=== PATIENT | female | born 1975 | race Two or more races ===

== ENCOUNTER 2025-01-07 14:31 | Inpatient (IN) | payer MEDICAID, SELFPAY ==
[2025-01-07] VITALS (15 sets, daily range): BP systolic 112–165; BP diastolic 62–95; PULSE 70–110; RESP 18–29; TEMP 36.6–37; O2SAT 97–100; BMI 23.3
--- NOTE | 2025-01-07 15:13 | XR_ITS ---
Examination: CT abdomen with intravenous contrast CT pelvis with intravenous contrast 2-D coronal reconstructions 2-D sagittal reconstructions Date and time of exam:January 07, 2025 at 1726 hours INDICATIONS: Generalized abdominal pain and swelling beginning 2 weeks ago. CTDI: vol (mGy) 9.66 DLP: (mGycm) 470 Technique: Multiple axial sections of the abdomen and pelvis have been obtained. 64 slice high-resolution scanner used. 3 mm axial sections have been obtained, post intravenous injection of 60 cc Isovue 370 2-D sagittal, coronal reconstructions obtained. Low dose protocols were performed. One or more of the following dose reduction techniques were used; automated exposure control, adjustment of the mA and/or KV according to patient size, use of iterative reconstruction technique. Findings: No focal liver or splenic lesions Patient motion degrades scan image quality No definite gallstones No pancreatic mass Small bilateral renal cysts No hydronephrosis Aorta normal size Hypodense mass in the subcutaneous tissue anterior right lower abdomen, mediolateral dimension 9.7 cm AP dimension 4.5 cm cephalad caudad dimension 8.3 cm Urinary bladder intact No pelvic mass Moderate degenerative disc disease L5-S1 IMPRESSION: Hypodense soft tissue mass in the subcutaneous tissue anterior right lower abdomen, 9.7 x 4.5 x 8.3 cm, differential would include abscess, less likely hematoma
--- NOTE | 2025-01-07 15:13 | PD.EDRME ---
Rapid Medical Screening Exam RME Arrival date/time: 01/07/25 14:31 49-year-old female presents emerged part today for complaint of abdominal pain abdominal swelling Chief Complaint: General Adult/Misc Complain Time Seen by Provider: 01/07/25 15:02 Vital signs: Vital Signs Temperature 97.9 F 01/07/25 15:04 Pulse Rate 110 H 01/07/25 15:04 Respiratory Rate 18 01/07/25 15:04 Blood Pressure 165/95 H 01/07/25 15:04 Pulse Oximetry (%) 97 01/07/25 15:04 Oxygen Delivery Method Room Air 01/07/25 15:04
[2025-01-07 15:32] LABS: Lactate (Lactic Acid) 1.6 mMol/L (0.4-2.0)
[2025-01-07 15:33] LABS: Basophils # (Auto) 0.1 Thou/mm3 (0.0-0.2); Basophils % (Auto) 0 % (0-2.5); Eosinophils % (Auto) 0 % (0-10); Hematocrit 43.1 % (36.0-46.0); Hemoglobin 15.5 g/dL (12.0-16.0); Immature Granulocytes % (Auto) 1 % (0-0); Immature Granulocytes Auto 0.12 Thou/mm3 (0.00-0.00); Lymphocytes # (Auto) 1.1 Thou/mm3 (1.0-4.8); Lymphocytes % (Auto) 6 % (10-50); Mean Corpuscular Hemoglobin 29.6 pg (25.0-35.0); Mean Corpuscular Volume 82 fL (80-100); Monocytes # (Auto) 0.9 Thou/mm3 (0.0-0.8); Monocytes % (Auto) 5 % (0-12); Neutrophils # (Auto) 15.4 Thou/mm3 (1.8-7.7); Neutrophils % (Auto) 87 % (37-80); Nucleated Red Blood Cell % 0 /100 WBC (0); Platelet Count 415 Thou/mm3 (140-440); Red Blood Count 5.23 Miln/mm3 (4.00-5.20); White Blood Count 17.6 Thou/mm3 (3.6-11.0)
[2025-01-07 16:03] LABS: Alanine Aminotransferase < 7 U/L (10-49); Albumin, Serum 4.3 gm/dL (3.5-5.0); Albumin/Globulin Ratio 1.3 (1.2-2.2); Alkaline Phosphatase 165 U/L (46-116); Anion Gap 20 (7-16); Aspartate Amino Transferase < 8 U/L (0-34); BUN/Creatinine Ratio 9 Ratio (12-20); Bilirubin,Total 0.4 mg/dL (0.3-1.2); Blood Urea Nitrogen 8 mg/dL (9-23); C-Reactive Protein 4.3 mg/dL (0.0-0.9); Calcium 9.2 mg/dL (8.3-10.6); Calcium (Corrected) 9.2 mg/dL (8.5-10.1); Chloride 99 mMol/L (98-107); Creatinine (Component) 0.9 mg/dL (0.6-1.3); Estimated Creatinine Clearance 46.1 mL/min (>60); Globulin 3.3 gm/dL (2.3-3.5); Glucose 377 mg/dL (74-106); Osmolality,Calculated 272 (275-295); Potassium 3.6 mMol/L (3.4-5.1); Procalcitonin 0.08 ng/ml (0.0-0.49); Sodium 129 mMol/L (136-145); Total Protein 7.6 gm/dL (5.7-8.2); eGFR > 60 See Note
[2025-01-07 16:04] LABS: Carbon Dioxide < 10.0 mMol/L (20.0-31.0)
--- NOTE | 2025-01-07 16:08 | PC.NURSE ---
CALL FROM [facility] IN LAB. PT'S CO2 IS LESS THAN 10. PROVIDER YINA ARCE.
[2025-01-07 16:59] LABS: Sed Rate (ESR) 77 mm/hr (0-20)
--- NOTE | 2025-01-07 17:58 | PD.EDABDPN ---
ED Abdominal Pain RME/HPI General Chief Complaint: General Adult/Misc Complain Stated complaint: HAS A BUMP ON HER STOMACH X 2 WKS; VERY PAINFUL Time seen by provider: 01/07/25 15:02 Arrival date/time: 01/07/25 14:31 RME / HPI RME / HPI narrative: 01/07/25 14:31 49-year-old female presents emerged part today for complaint of abdominal pain abdominal swelling ----- This section includes all my notes and documentations, including HPI, PE, and ED course. Barry Anne MD HPI: 49yo female with a history of DM presents to the ED for complaints of abdominal pain, nausea, and vomiting for the last two weeks. Didn't take her insulin for about a week. Patient's symptoms have been persistent and progressively worsening. No fever, chills, UTI symptoms. No other complaints reported. ROS: All negative except as documented in HPI. Physical Exam: General: Alert and oriented. Appearance of severe malaise noted. Eyes: Conjunctivae and lids clear. ENT: No nasal congestion. Neck: Supple. Heart: RRR. Lungs: No respiratory distress. Good air movement. No rhonchi, wheezing, rales. Abdomen: Soft. Normal bowel sounds. No distension. No rebound or guarding. Inferior to the umbilicus, there is apple sized lump. Back: No CVA tenderness. Skin: Warm and dry. Neuro: Alert and oriented X 3. I reviewed all diagnostic test results. My review of the CT abdomen pelvis report is lower abdominal 9.7 x 4.5 x 8.3 cm mass. Blood tests remarkable for WBC 17.6, ESR 77, Carbon Dioxide <10, Glucose 377, Anion Gap 20, CRP 4.3, A1c >14, Beta Hydroxybutyrate 5.9. ABG showed pH 7.17, pCO2 14, pHCO3 5. UA remarkable for 4+ ketones. At this point, diagnoses include DKA and abdominal abscess. Treatment here included Morphine, Zofran, Toradol, Insulin drip, NS, 2L LR, and Zosyn. No significant improvement noted. I discussed the case with our surgeon and ICU service. About the presentation and exam and diagnostics and treatments here. And need of further care in the hospital. Will accept the patient. Barry Anne MD Related Data Allergies Allergy/AdvReac Type Severity Reaction Status Date / Time No Known Allergies Allergy Verified 01/07/25 14:37 Review of Systems Review of Systems Systems Reviewed: All systems reviewed, normal except as documented Past Medical History Past Medical History CARDIAC: Negative Cardiac Disorders or Congestive Heart Failure RESPIRATORY: Negative Chronic Obstructive Pulmonary Disease (COPD) or Asthma GENITOURINARY: Negative Renal Disease ENDOCRINE: Positive Diabetes Mellitus Type 2; Negative Diabetes Mellitus Type 1 HEMATOLOGIC: Positive Anemia; Negative Sickle Cell Disease OTHER HISTORY: Positive Blood Transfusions; Negative Organ Transplant Surgical History SURGICAL: Positive Abdominal Surgery, Tubal Ligation (2002) and Section; Negative Organ Transplant Social History SMOKING STATUS: Never smoker ED Exam Narrative Physical exam: As noted in HPI. Course Quality Measures none Orders Category Date Time Status COVID-19 Screening Questionnaire NOW Care 01/07/25 19:[address] Screening NOW Care 01/07/25 15:13 Active Decision to Admit X1 Care 01/07/25 19:31 Active Saline [Insert IV] NOW Care 01/07/25 18:00 Active Straight [In and Out Catheter] X1 Care 01/07/25 18:00 Active Consult to General Surgery Stat Cons 01/07/25 18:[address] abdomen pelvis w con Stat Exams 01/07/25 15:13 Completed US abdomen limited Stat Exams 01/07/25 18:06 Taken ABG [Arterial Blood Gas] Stat Lab 01/07/25 18:28 Completed Amylase Stat Lab 01/07/25 18:37 Completed Beta Hydroxybutyrate Stat Lab 01/07/25 18:37 Completed Bilirubin,Direct Stat Lab 01/07/25 18:37 Completed Blood Culture (Lab) Stat Lab 01/07/25 15:20 Received CBC Stat Lab 01/07/25 15:23 Completed CRP [C-Reactive Protein] Stat Lab 01/07/25 15:23 Completed Comprehensive Metabolic Panel Stat Lab 01/07/25 15:23 Completed ESR [Sed Rate (ESR)] Stat Lab 01/07/25 15:23 Completed Free T4 (Free Thyroxine) Stat Lab 01/07/25 18:37 Completed HCG Qualitative,Urine Stat Lab 01/07/25 18:25 Completed Hemoglobin A1C [Glycohemoglobin w (eAG)] Stat Lab 01/07/25 18:37 Completed Lactate (Lactic Acid) Stat Lab 01/07/25 15:23 Completed Lipase Stat Lab 01/07/25 18:37 Completed Magnesium Stat Lab 01/07/25 18:37 Completed Procalcitonin Stat Lab 01/07/25 15:23 Completed TSH [Thyroid Stimulating Hormone] Stat Lab 01/07/25 18:37 Completed Urinalysis Stat Lab 01/07/25 18:25 Completed Urine Culture Stat Lab 01/07/25 18:25 Received 3.375 gm x1 Med 01/07/25 19:37 Ordered Piper/Tazo 3.375 gm Premix [Zosyn] 3.375 gm in 50 ml IV X1 Insulin Reg 100 Units/100 ml [Myxredlin] Med 01/07/25 18:38 Active 100 unit in 100 ml IV 0.1 unit/kg/hr Insulin Regular Med 01/07/25 18:05 Discontinued 5 unit IV X1 ONE Ketorolac Inj [Toradol Inj] Med 01/07/25 18:00 Discontinued 30 mg IVP X1 ONE Morphine Inj Med 01/07/25 18:00 Discontinued 6 mg IVP X1 ONE Ondansetron Inj [Zofran Inj] Med 01/07/25 18:00 Discontinued 4 mg IVP X1 ONE Ringers Lactated 1000 ml [Lactated Ringers] 1,000 ml Med 01/07/25 18:38 Discontinued IV 1,000 mls/hr Ringers Lactated 1000 ml [Lactated Ringers] 1,000 ml Med 01/07/25 18:38 Discontinued IV 1,000 mls/hr Sodium Chloride 0.9% 1000 ml [Ns] 1,000 ml Med 01/07/25 18:00 Discontinued IV 999 mls/hr Vital Signs Vital signs: Vital Signs Temperature 97.9 F 01/07/25 15:04 Pulse Rate 110 H 01/07/25 15:04 Respiratory Rate 18 01/07/25 15:04 Blood Pressure 165/95 H 01/07/25 15:04 Pulse Oximetry (%) 97 01/07/25 15:04 Oxygen Delivery Method Room Air 01/07/25 15:04 Abdominal Pain MDM MDM Narrative MDM Narrative:: 49yo female with a history of DM presents to the ED for complaints of abdominal pain, nausea, and vomiting for the last two weeks. Didn't take her insulin for about a week. Patient's symptoms have been persistent and progressively worsening. No fever, chills, UTI symptoms. No other complaints reported. Patient data External records reviewed:: [facility] previous records (Per chart review, patient has no previous ED visits or admissions to this facility.) Clinical information provided by:: patient Social determinants that could affect healthcare access:: none Patient has the following chronic illnesses:: DM How is presenting disease/condition affected by chronic disease/condition?: uneffected by Evaluation data The following diagnostics were reviewed and interpreted by me:: lab results and radiology exam(s) Lab and/or radiology exams considered but not ordered:: none Interpretation Summary: I reviewed all diagnostic test results. My review of the CT abdomen pelvis report is lower abdominal 9.7 x 4.5 x 8.3 cm mass. Blood tests remarkable for WBC 17.6, ESR 77, Carbon Dioxide <10, Glucose 377, Anion Gap 20, CRP 4.3, A1c >14, Beta Hydroxybutyrate 5.9. ABG showed pH 7.17, pCO2 14, pHCO3 5. UA remarkable for 4+ ketones. Medications / Prescriptions Medications or Prescriptions considered but not ordered:: none Medication administrations:: Medication Administration History Insulin Human Regular (Myxredlin) 100 unit in 100 mls @ 4.4 mls/hr IV .[id number] PRN; Protocol PRN Reason: PER PROTOCOL Stop: 02/06/25 18:37 Last Admin: 01/07/25 19:20 Dose: 0.1 unit/kg/hr, 4.4 mls/hr Documented By: AIYANA Co-signed By: LAYLA Discontinued Medications Sodium Chloride (Ns) 1,000 mls @ 999 mls/hr IV .Q1H1M ONE Stop: 01/07/25 19:00 Last Admin: 01/07/25 19:14 Dose: 999 mls/hr Documented By: AIYANA Lactated Ringer's (Lactated Ringers) 1,000 mls @ 1,000 mls/hr IV .Q1H ONE Stop: 01/07/25 19:37 Lactated Ringer's (Lactated Ringers) 1,000 mls @ 1,000 mls/hr IV .Q1H ONE Stop: 01/07/25 19:37 Insulin Human Regular (Insulin Hum Regular 1 Unit/0.01 Ml (Per Unit)) 5 unit IV X1 ONE Stop: 01/07/25 18:06 Last Admin: 01/07/25 19:31 Dose: Not Given Documented By: LAYLA Non-Admin Reason: Discontinued Ketorolac Tromethamine (Ketorolac Inj 30 Mg/Ml Vial) 30 mg IVP X1 ONE Stop: 01/07/25 18:01 Last Admin: 01/07/25 19:10 Dose: 30 mg Documented By: AIYANA Morphine Sulfate (Morphine Sulf Inj 10 Mg/Ml Vial) 6 mg IVP X1 ONE Stop: 01/07/25 18:01 Ondansetron HCl (Ondansetron Inj 2 Mg/Ml Inj 2 Ml) 4 mg IVP X1 ONE; Protocol Stop: 01/07/25 18:01 Last Admin: 01/07/25 19:10 Dose: 4 mg Documented By: AIYANA Morphine, Zofran, Toradol, Insulin drip, NS, 2L LR, and Zosyn. Consultations Consultation(s) initiated? (list below): Yes Consultation #1 (Physician, Specialty, Details): I discussed the case with our general surgeon and ICU service. About the presentation and exam and diagnostics and treatments here. And need of further care in the hospital. Will accept the patient. Diagnosis Differential diagnosis abdominal pain: acute appendicitis, calculus of kidney, diverticulitis, endometriosis, gastroenteritis, pancreatitis, small bowel obstruction and other (DKA, dehydration, electrolyte abnormalities.) Most likely diagnosis given after review of the tests above:: DKA and abdominal abscess per Admission Indicated Admission indicated?: indicated Explain why admission is indicated or not indicated:: DKA and abdominal masses. Admission Request Was there a request for admission?: Yes Admission Attestation Admission request attestation: Discussed case with ICU service service regarding admission. Discussed patients ED course, exam findings, labs, and radiology results. Agrees to accept the patient for admission. Disposition Plan Disposition Plan: Admit Critical Care Time Critical Care Time Critical Care Time: Yes Total Critical Care Time (min.): 40 Attestation: Due to a high probability of clinically significant, life threatening deterioration, the patient required my highest level of preparedness to intervene emergently and I personally spent this critical care time directly and personally managing the patient. This critical care time included obtaining a history; examining the patient; ordering and review of studies; arranging urgent treatment with development of a management plan; evaluation of patient's response to treatment; frequent reassessment; and discussions with family and other providers. It was exclusive of separately billable procedures and treating other patients and teaching time. Barry Anne MD Discharge Plan Plan Patient Disposition: Admit Acute Care w/in Hospital Prescriptions/Referrals Referrals: No Primary/Family,Physician [Primary Care Provider] - In 1 week Problem List Clinical Impression: DKA (diabetic ketoacidosis), Abdominal abscess Patient/Caregiver Discharge Instructions Print Language: Swiss Stand Alone Forms: Kady Award Info., Patient Portal Info Letter
--- NOTE | 2025-01-07 18:06 | XR_ITS ---
Examination: Abdomen sonogram, Limited Date and time of exam: January 07, 2025 1916 hours INDICATIONS: Right lower abdomen palpable lump and pain 2 weeks Technique: Real-time oropeza scale transabdominal sonographic images of the upper abdomen obtained. Findings: Avascular lesion in the anterior right lower abdominal wall ill-defined borders 12.6 x 3.8 x 10.6 cm, consider abscess, hematoma, clinical correlation advised IMPRESSION: 12.6 x 3.8 x 10.0 cm noncompressible mass in the right lower abdomen abdominal wall, differential would include abscess, hematoma, clinical correlation is advised
[2025-01-07 18:33] LABS: Collection Type, Urine Clean Catch
[2025-01-07 18:34] LABS: Base Excess -21 (-3-3); HCO3 5 mEq/L (20-26); Inspired Oxygen, FIO2 21 %; O2 Saturation 97 % (91-98); PCO2 14 mmHg (32.0-48.0); PO2 122 mmHg (83-108)
[2025-01-07 18:36] LABS: pH, Arterial 7.17 (7.35-7.45)
[2025-01-07 18:37] LABS: Allen Test Performed/OK; Puncture Site Right Radial
[2025-01-07 18:39] LABS: HCG Qualitative,Urine Negative
[2025-01-07 18:41] LABS: Bilirubin,Urine Negative (Negative); Blood,Urine Trace (Negative); Clarity,Urine Clear (Clear/Hazy); Color,Urine Colorless (Lt Yel-Yel); Glucose, Urine 4+ (Negative); Hyaline Casts,Urine < 1 /hpf (0-1); Ketones,Urine 4+ (Negative); Leukocyte Esterase,Urine Negative (Negative); Nitrite,Urine Negative (Negative); PH,Urine 5.5 (5.0-7.0); Protein,Urine 1+ (Neg - Trace); RBC,Urine 2 /hpf (0-3); Specific Gravity,Urine 1.039 (1.001-1.035); Squamous Epithelial Cell,Urine < 1 /hpf (0-5); Urobilinogen,Urine Negative mg/dL (0.0-1.0); WBC,Urine 3 /hpf (0-5)
[2025-01-07 19:00] LABS: Beta Hydroxybutyrate 5.9 mmol/L (<0.6)
[2025-01-07] MEDS: ONDANSETRON INJ 2 MG/ML INJ 2 ML 4 MG IVP (19:10)
[2025-01-07] MEDS: KETOROLAC INJ 30 MG/ML VIAL IVP (19:10)
[2025-01-07 19:13] LABS: Glucose Estimated Average 355 mg/dL (80-131); Hemoglobin A1C > 14.0 % Hgb (4.8-6.0)
[2025-01-07] MEDS: SODIUM CHLORIDE 0.9% 1000 ML 1,000 ML 999 ML IV (19:14)
[2025-01-07] MEDS: INSULIN REG 100 UNITS/100 ML 100 UNIT/100 ML BAG IV (19:20)
[2025-01-07 19:31] LABS: Amylase 56 U/L (30-118); Bilirubin,Direct < 0.1 mg/dL (0.0-0.3); Free T4 (Free Thyroxine) 0.94 ng/dL (0.89-1.76); Lipase 57 U/L (12-53); Magnesium 2.4 mg/dL (1.6-2.6); Thyroid Stimulating Hormone 1.47 uIU/mL (0.55-4.78)
[2025-01-07] MEDS: RINGERS LACTATED 1000 ML 1,000 ML IV ×2 (20:02)
--- NOTE | 2025-01-07 20:09 | EKG_ITS ---
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
--- NOTE | 2025-01-07 20:10 | ESHP_ITS ---
Documentation for date of: 01/07/25 HPI - Hospitalist History of Present Illness History of present illness: A 49-year-old female with Hx of insulin-dependent diabetes melitis complains of intermittent nausea, nonbloody nonbilious emesis and abdominal pain for the past 2 weeks. She reports having lower abdominal pain with swelling and tenderness that started 2 weeks ago and has been progressing in severity. She recently saw her PCP who did certain imaging with reportedly fat tissue and the swelling of the abdominal wall. She describes running out of her medications for diabetes and has not been taking her antidiabetic medications for the past 4-5 days. She denies chest pain, shortness of breath, dizziness, syncope, dysuria, bowel bladder dysfunction otherwise. No history of smoking, occasional EtOH use and denies substance use. Review of Systems Review of Systems Narrative Review of Systems: 12 point review of systems unremarkable except as described above Meds Home Medications and Allergies Allergies Allergy/AdvReac Type Severity Reaction Status Date / Time No Known Allergies Allergy Verified 01/07/25 14:37 Exam Vital Signs Temp Pulse Resp BP Pulse Ox O2 Del Method 98.6 F 92 21 H 147/88 H 98 Room Air 01/07/25 16:38 01/07/25 19:30 01/07/25 19:30 01/07/25 19:30 01/07/25 19:30 01/07/25 19:30 Narrative Physical Exam: General: AO x 3, No distress. HEENT: PERRL, No JVD, Neck supple. Resp: CTA bilaterally, no wheezing or crackles/rhonchii Card: Regular Rhythm, Normal rate. No audible murmur Gatro: Soft nontender, nondistended, protuberant mass in central lower quadrant with tenderness however no fluctuation. Extr: No LE edema, ROM intact, Neuro: No focal neruological deficits. Results - Hospitalist Labs Diagrams: 01/07/25 15:23 01/07/25 15:23 Labs: Short CBC 01/07/25 Range/Units 15:23 WBC 17.6 H (3.6-11.0) Thou/mm3 Hgb 15.5 (12.0-16.0) g/dL Hct 43.1 (36.0-46.0) % Plt Count 415 (140-440) Thou/mm3 BMP 06/23/25 15:23 Sodium 129 L Potassium 3.6 Chloride 99 Carbon Dioxide < 10.0 L* BUN 8 L Creatinine 0.9 Glucose 377 H Calcium 9.2 Liver Function 01/07/25 01/07/25 Range/Units 15:23 18:37 Total Bilirubin 0.4 (0.3-1.2) mg/dL Direct Bilirubin < 0.1 (0.0-0.3) mg/dL AST < 8 (0-34) U/L ALT < 7 L (10-49) U/L Alkaline Phosphatase 165 H (46-116) U/L Albumin 4.3 (3.5-5.0) gm/dL Urine 01/07/25 Range/Units 18:25 Urine Color Colorless A (Lt Yel-Yel) Urine Clarity Clear (Clear/Hazy) Urine pH 5.5 (5.0-7.0) Ur Specific [place] 1.039 H (1.001-1.035) Urine Protein 1+ A (Neg - Trace) Urine Glucose (UA) 4+ A (Negative) ABG Interpretation ABG results: 01/07/25 18:28 ABG pH 7.17 L* ABG pCO2 14 L* ABG pO2 122 H ABG HCO3 5 L* ABG O2 Saturation 97 ABG Base Excess -21 L Assessment & Plan -Hospitalist Additional Assessment A 49-year-old female with history of diabetes ran out of her medications had lower abdominal wall swelling with recurrent nausea and vomiting for the past 2 weeks. Patient noted to have DKA and likely lower abdominal wall abscess. Surgery evaluated patient with the plan for OR tomorrow. Will treat DKA meanwhile. Active issues: Diabetic ketoacidosis. Abdominal wall abscess. Uncontrolled diabetes mellitus. Pseudohyponatremia Severe electrolyte derangements PLAN: -Continue insulin drip as per DKA protocol. -Continue IV fluid resuscitation with KCl supplementation -Will empirically start on Zosyn and vancomycin for abdominal wall abscess -Repeat renal panel and serum electrolyte in 6 hours -Keep n.p.o. except medications overnight 4 OR tomorrow -Lovenox for DVT & PPI for GI ppx. Uriah Monte MD Quality Measures Quality Measures none
[2025-01-07] MEDS: PIPER/TAZO 3.375 GM PREMIX 3.375 GM/50 ML BAG IV (20:20)
[2025-01-07] MEDS: ENOXAPARIN SOD INJ 40 MG/0.4 ML SYRINGE SC (21:00)
[2025-01-07] MEDS: VANCOMYCIN/NS 1 GM IVPB 200 ML IV (21:05)
--- NOTE | 2025-01-07 21:46 | PC.NURSE ---
Contacted Dr. Monte regarding no fluid maintenance orders, or electrolyte replacement orders. to place orders.
[2025-01-07] MEDS: KCL 20 mEq/L in D5-LR 20 MEQ/1,000 ML BAG 250 MEQ IV (22:20)
[2025-01-07] MEDS: RINGERS LACTATED 1000 ML 1,000 ML 250 ML IV (23:00)
[2025-01-07] MEDS: POTASSIUM CHL 10 mEq IVPB 10 MEQ/100 ML BAG 50 MEQ IV (23:02)
[2025-01-07 23:35] LABS: Albumin, Serum 3.2 gm/dL (3.5-5.0); BUN/Creatinine Ratio 10 Ratio (12-20); Blood Urea Nitrogen < 5 mg/dL (9-23); Calcium (Corrected) 8.6 mg/dL (8.5-10.1); Chloride 108 mMol/L (98-107); Creatinine (Component) 0.5 mg/dL (0.6-1.3); Estimated Creatinine Clearance 82.9 mL/min (>60); Glucose 181 mg/dL (74-106); Magnesium 1.8 mg/dL (1.6-2.6); Osmolality,Calculated 274 (275-295); Sodium 136 mMol/L (136-145); eGFR > 60 See Note
[2025-01-07 23:36] LABS: Potassium 2.1 mMol/L (3.4-5.1)
[2025-01-07 23:37] LABS: Anion Gap 13 (7-16); Carbon Dioxide 15.1 mMol/L (20.0-31.0)
[2025-01-07 23:59] LABS: Basophils # (Auto) 0.1 Thou/mm3 (0.0-0.2); Basophils % (Auto) 0 % (0-2.5); Eosinophils % (Auto) 0 % (0-10); Hematocrit 35.7 % (36.0-46.0); Immature Granulocytes % (Auto) 1 % (0-0); Immature Granulocytes Auto 0.13 Thou/mm3 (0.00-0.00); Lymphocytes # (Auto) 1.4 Thou/mm3 (1.0-4.8); Lymphocytes % (Auto) 9 % (10-50); Mean Corpuscular HGB Conc 36.4 g/dl (31.0-37.0); Mean Corpuscular Hemoglobin 29.5 pg (25.0-35.0); Mean Corpuscular Volume 81 fL (80-100); Monocytes # (Auto) 1.1 Thou/mm3 (0.0-0.8); Monocytes % (Auto) 7 % (0-12); Neutrophils % (Auto) 83 % (37-80); Nucleated Red Blood Cell % 0 /100 WBC (0); Platelet Count 355 Thou/mm3 (140-440); RDW Standard Deviation 35.8 fL (36.4-46.3); Red Blood Count 4.41 Miln/mm3 (4.00-5.20); White Blood Count 15.7 Thou/mm3 (3.6-11.0)
[2025-01-08] VITALS (25 sets, daily range): BP systolic 100–142; BP diastolic 61–84; PULSE 69–90; RESP 14–99; TEMP 36.2–37.1; O2SAT 97–100; BMI 23.1
--- NOTE | 2025-01-08 00:09 | PC.NURSE ---
pt potassium at 2.1. Insulin off at this time. potassium phos and LR with 10 meq krider infusing at separate iv sites. called Dr. Monte, no answer and voicemail, Called Dr. diaz and new orders to proceed with protocol. Nursing HS notified for need to 40 MEQ bags for DKA protocol. awaiting medications at this time. pt is alert and oriented, vitals within normal limits, property assessment monitor in place.
[2025-01-08 00:22] LABS: Cardiac Risk Estimate 4.4 RATIO (3.7-5.6); Cholesterol 169 mg/dL (132-200); HDL Cholesterol 38 mg/dL (40-60); LDL Cholesterol,Calculated 96 mg/dL (0-130); Triglycerides 176 mg/dL (30-150); Troponin I < 0.020 ng/mL (0.0-0.045)
[2025-01-08] MEDS: POTASSIUM CHL 10 mEq IVPB 10 MEQ/100 ML BAG 50 MEQ IV ×2 (00:31→02:43)
[2025-01-08 02:52] LABS: Anion Gap 15 (7-16); BUN/Creatinine Ratio 10 Ratio (12-20); Blood Urea Nitrogen < 5 mg/dL (9-23); Calcium (Corrected) 8.8 mg/dL (8.5-10.1); Chloride 108 mMol/L (98-107); Creatinine (Component) 0.5 mg/dL (0.6-1.3); Estimated Creatinine Clearance 82.9 mL/min (>60); Glucose 173 mg/dL (74-106); Magnesium 1.8 mg/dL (1.6-2.6); Osmolality,Calculated 273 (275-295); Phosphorous 1.8 mg/dL (2.4-5.1); Sodium 136 mMol/L (136-145); eGFR > 60 See Note
[2025-01-08 02:55] LABS: Carbon Dioxide 13.4 mMol/L (20.0-31.0); Potassium 2.6 mMol/L (3.4-5.1)
[2025-01-08] MEDS: POT CHL ADDITIVE 40 MEQ in DEXTROSE 5%-LACTATED RINGERS 1,000 ML 250 MEQ IV ×3 (02:58→12:45)
[2025-01-08] MEDS: POT CHL ADDITIVE 20 MEQ in RINGERS LACTATED 1000 ML 1,000 ML 250 MEQ IV ×2 (03:50→08:14)
[2025-01-08] MEDS: POTASSIUM CHL 10 mEq IVPB 10 MEQ/100 ML BAG 100 MEQ IV ×10 (03:55→14:57)
[2025-01-08 05:53] LABS: Lactate (Lactic Acid) 1.4 mMol/L (0.4-2.0)
[2025-01-08 06:01] LABS: Basophils # (Auto) 0.1 Thou/mm3 (0.0-0.2); Basophils % (Auto) 1 % (0-2.5); Eosinophils # (Auto) 0.1 Thou/mm3 (0.0-0.5); Eosinophils % (Auto) 0 % (0-10); Hematocrit 41.7 % (36.0-46.0); Hemoglobin 14.9 g/dL (12.0-16.0); Immature Granulocytes % (Auto) 1 % (0-0); Immature Granulocytes Auto 0.12 Thou/mm3 (0.00-0.00); Lymphocytes # (Auto) 1.3 Thou/mm3 (1.0-4.8); Lymphocytes % (Auto) 11 % (10-50); Mean Corpuscular HGB Conc 35.7 g/dl (31.0-37.0); Mean Corpuscular Volume 84 fL (80-100); Monocytes % (Auto) 8 % (0-12); Neutrophils # (Auto) 9.8 Thou/mm3 (1.8-7.7); Neutrophils % (Auto) 79 % (37-80); Nucleated Red Blood Cell % 0 /100 WBC (0); Platelet Count 355 Thou/mm3 (140-440); RDW Standard Deviation 36.6 fL (36.4-46.3); Red Blood Count 4.97 Miln/mm3 (4.00-5.20); White Blood Count 12.4 Thou/mm3 (3.6-11.0)
[2025-01-08 06:20] LABS: Albumin, Serum 3.3 gm/dL (3.5-5.0); Anion Gap 15 (7-16); BUN/Creatinine Ratio 8 Ratio (12-20); Blood Urea Nitrogen < 5 mg/dL (9-23); Calcium 8.4 mg/dL (8.3-10.6); Chloride 107 mMol/L (98-107); Creatinine (Component) 0.6 mg/dL (0.6-1.3); Estimated Creatinine Clearance 69.1 mL/min (>60); Glucose 254 mg/dL (74-106); Magnesium 1.8 mg/dL (1.6-2.6); Osmolality,Calculated 276 (275-295); Phosphorous 1.9 mg/dL (2.4-5.1); Potassium 3.3 mMol/L (3.4-5.1); Sodium 135 mMol/L (136-145); eGFR > 60 See Note
[2025-01-08 06:25] LABS: Carbon Dioxide 13.3 mMol/L (20.0-31.0)
--- NOTE | 2025-01-08 07:16 | PD.RESPRO ---
Documentation for date of: 01/08/25 Subjective Subjective Interval history: A 49-year-old female with Hx of insulin-dependent diabetes melitis complains of intermittent nausea, nonbloody nonbilious emesis for the past 4 days and abdominal pain for the past 2 weeks. She reports having lower abdominal pain with swelling and tenderness that started 2 weeks ago and has been progressing in severity. This first occurred after getting stuck by a thorn in the lumbar and feels. She recently saw her PCP who did certain imaging with reportedly fat tissue and the swelling of the abdominal wall. She describes running out of her medications for diabetes presented to her PCP last week Tuesday for refill, however the medication was never sent to her pharmacy. For the past 4 days she has not been on any diabetic medication. She denies chest pain, shortness of breath, dizziness, syncope, dysuria, bowel bladder dysfunction otherwise. Patient was admitted to the ICU for treatment and management of DKA. 01/08/2025: No events overnight. Patient seen and examined at bedside this a.m. Endorses 8/10 constant lower abdominal pain around area of swollen, worse on palpation. WBC decreased to 12.4 from 17.6, K3.3, bicarb 13.4, glucose 254, anion gap 15, HbA1c 14%, phosphorus 1.9. CT abdomen/pelvis showed 9.7 x 4.5 x 8.3 cm soft tissue swelling in lower abdomen differentials include abscess versus hematoma. General surgeon, Dr. Coyle consulted and examined patient this morning, she says most likely soft tissue swelling with hematoma and no need for surgical intervention at this time. Given 1L LR IVF bolus, Neutra-Phos 1 packet p.o. x 1. Continue Zosyn 3.375 g IV Q8 hourly and vancomycin pharmacy to dose for abdominal wall hematoma versus abscess. Exam Vital Signs Temp Pulse Resp BP Pulse Ox O2 Del Method 97.1 F 74 15 113/67 99 Room Air 01/08/25 04:00 01/08/25 07:00 01/08/25 07:00 01/08/25 07:00 01/08/25 07:00 01/08/25 07:00 Narrative Exam Constitutional Alert, oriented x 3 and comfortable. Middle-age female HEENT Vision grossly intact. Patent nares. Trachea midline Respiratory Chest normal on inspection and decreased air entry at bases posteriorly with mild crackles. Cardiovascular S1 and S2 audible, RRR. No murmurs carotid bruit. No gross JVD. Abdominal Soft and non tender to palpation in all upper quadrants. 10 x 10 lower abdominal soft tissue swelling, erythematous, tender to palpation, nonfluctuant, no punctum seen. BS + Genitourinary No bladder tenderness, no flank pain. Normal to palpation Musculoskeletal Extremities tone within normal limits. No LE edema. Neurological CN II - XII grossly intact. Extremity motor and sensation grossly intact. Skin Warm, dry and intact. No apparent lesions. Psychiatric Patient has good affect, is cooperative Objective Labs 01/14/25 04:30 01/14/25 04:30 Labs: Laboratory Results - last 24 hr 01/07/25 01/07/25 01/07/25 15:23 18:25 18:28 WBC 17.6 H RBC 5.23 H Hgb 15.5 Hct 43.1 MCV 82 MCH 29.6 MCHC 36.0 RDW Std Deviation 37.0 Plt Count 415 Neut % (Auto) 87 H Lymph % (Auto) 6 L [place] % (Auto) 5 Eos % (Auto) 0 Baso % (Auto) 0 Neut # (Auto) 15.4 H Lymph # (Auto) 1.1 [place] # (Auto) 0.9 H Eos # (Auto) 0.0 Baso # (Auto) 0.1 Immature Gran # (Auto) 0.12 H Absolute Nucleated RBC 0.00 Immature Gran % 1 H Nucleated RBC % 0 ESR 77 H Puncture Site Right Radial ABG pH 7.17 L* ABG pCO2 14 L* ABG pO2 122 H ABG HCO3 5 L* ABG O2 Saturation 97 ABG Base Excess -21 L FiO2 21 Sodium 129 L Potassium 3.6 Chloride 99 Carbon Dioxide < 10.0 L* Anion Gap 20 H BUN 8 L Creatinine 0.9 Estim Creat Clear Calc 46.1 L eGFR > 60 BUN/Creatinine Ratio 9 L Glucose [address] Glu mg/dL Hemoglobin A1c Calculated Osmolality 272 L Lactic Acid 1.6 Calcium 9.2 Corrected Calcium 9.2 Phosphorus Magnesium Total Bilirubin 0.4 Direct Bilirubin AST < 8 ALT < 7 L Alkaline Phosphatase 165 H Troponin I C-Reactive Prot, Quant 4.3 H Total Protein 7.6 Albumin 4.3 Globulin 3.3 Albumin/Globulin Ratio 1.3 Triglycerides Cholesterol LDL Cholesterol, Calc HDL Cholesterol Cholesterol/HDL Ratio Amylase Lipase Beta-Hydroxybutyrate/Acetoacetate Procalcitonin 0.08 TSH Free T4 Ur Collection Type Clean Catch Urine Color Colorless A Urine Clarity Clear Urine pH 5.5 Ur Specific [place] 1.039 H Urine Protein 1+ A Urine Glucose (UA) 4+ A Urine Ketones 4+ A Urine Blood Trace Urine Nitrite Negative Urine Bilirubin Negative Urine Urobilinogen (Auto) Negative Ur Leukocyte Esterase Negative Urine RBC 2 Urine WBC 3 Ur Squamous Epith Cells < 1 Urine Bacteria None Hyaline Casts < 1 Urine HCG, Qual Negative 01/07/25 01/07/25 01/08/25 18:37 23:00 01:31 WBC 15.7 H RBC 4.41 Hgb 13.0 D Hct 35.7 L MCV 81 MCH 29.5 MCHC 36.4 RDW Std Deviation 35.8 L Plt Count 355 D Neut % (Auto) 83 H Lymph % (Auto) 9 L [place] % (Auto) 7 Eos % (Auto) 0 Baso % (Auto) 0 Neut # (Auto) 13.0 H Lymph # (Auto) 1.4 [place] # (Auto) 1.1 H Eos # (Auto) 0.0 Baso # (Auto) 0.1 Immature Gran # (Auto) 0.13 H Absolute Nucleated RBC 0.00 Immature Gran % 1 H Nucleated RBC % 0 ESR Puncture Site ABG pH ABG pCO2 ABG pO2 ABG HCO3 ABG O2 Saturation ABG Base Excess FiO2 Sodium 136 136 Potassium 2.1 L* D 2.6 L* D Chloride 108 H 108 H Carbon Dioxide 15.1 L 13.4 L* Anion Gap 13 15 BUN < 5 L < 5 L Creatinine 0.5 L 0.5 L Estim Creat Clear Calc 82.9 82.9 eGFR > 60 > 60 BUN/Creatinine Ratio 10 L 10 L Glucose [address] H [address] Glu mg/dL 355 H Hemoglobin A1c > 14.0 H Calculated Osmolality 274 L 273 L Lactic Acid 1.0 Calcium 8.0 L 8.0 L Corrected Calcium 8.6 8.8 Phosphorus 1.0 L 1.8 L Magnesium 2.4 1.8 1.8 Total Bilirubin Direct Bilirubin < 0.1 AST ALT Alkaline Phosphatase Troponin I < 0.020 C-Reactive Prot, Quant Total Protein Albumin 3.2 L D 3.0 L Globulin Albumin/Globulin Ratio Triglycerides 176 H Cholesterol 169 LDL Cholesterol, Calc 96 HDL Cholesterol 38 L Cholesterol/HDL Ratio 4.4 Amylase 56 Lipase 57 H Beta-Hydroxybutyrate/Acetoacetate 5.9 H Procalcitonin TSH 1.47 Free T4 0.94 Ur Collection Type Urine Color Urine Clarity Urine pH Ur Specific [place] Urine Protein Urine Glucose (UA) Urine Ketones Urine Blood Urine Nitrite Urine Bilirubin Urine Urobilinogen (Auto) Ur Leukocyte Esterase Urine RBC Urine WBC Ur Squamous Epith Cells Urine Bacteria Hyaline Casts Urine HCG, Qual 01/08/25 05:22 WBC 12.4 H RBC 4.97 Hgb 14.9 Hct 41.7 MCV 84 MCH 30.0 MCHC 35.7 RDW Std Deviation 36.6 Plt Count 355 Neut % (Auto) 79 Lymph % (Auto) 11 [place] % (Auto) 8 Eos % (Auto) 0 Baso % (Auto) 1 Neut # (Auto) 9.8 H Lymph # (Auto) 1.3 [place] # (Auto) 1.0 H Eos # (Auto) 0.1 Baso # (Auto) 0.1 Immature Gran # (Auto) 0.12 H Absolute Nucleated RBC 0.00 Immature Gran % 1 H Nucleated RBC % 0 ESR Puncture Site ABG pH ABG pCO2 ABG pO2 ABG HCO3 ABG O2 Saturation ABG Base Excess FiO2 Sodium 135 L Potassium 3.3 L D Chloride 107 Carbon Dioxide 13.3 L* Anion Gap 15 BUN < 5 L Creatinine 0.6 Estim Creat Clear Calc 69.1 eGFR > 60 BUN/Creatinine Ratio 8 L Glucose [address] Glu mg/dL Hemoglobin A1c Calculated Osmolality 276 Lactic Acid 1.4 Calcium 8.4 Corrected Calcium 9.0 Phosphorus 1.9 L Magnesium 1.8 Total Bilirubin Direct Bilirubin AST ALT Alkaline Phosphatase Troponin I C-Reactive Prot, Quant Total Protein Albumin 3.3 L Globulin Albumin/Globulin Ratio Triglycerides Cholesterol LDL Cholesterol, Calc HDL Cholesterol Cholesterol/HDL Ratio Amylase Lipase Beta-Hydroxybutyrate/Acetoacetate Procalcitonin TSH Free T4 Ur Collection Type Urine Color Urine Clarity Urine pH Ur Specific [place] Urine Protein Urine Glucose (UA) Urine Ketones Urine Blood Urine Nitrite Urine Bilirubin Urine Urobilinogen (Auto) Ur Leukocyte Esterase Urine RBC Urine WBC Ur Squamous Epith Cells Urine Bacteria Hyaline Casts Urine HCG, Qual ABG Interpretation ABG results: 01/07/25 18:28 ABG pH 7.17 L* ABG pCO2 14 L* ABG pO2 122 H ABG HCO3 5 L* ABG O2 Saturation 97 ABG Base Excess -21 L Quality Measures Quality Measures none Assessment & Plan Assessment Current Active Medications: Generic Name Dose Route Start Last Admin Trade Name Freq PRN Reason Stop Dose Admin Acetaminophen 650 mg 01/07/25 20:06 Acetaminophen 325 Mg Tablet PO 02/06/25 20:05 Q4HR PRN PAIN SCALE 1-3 (mild Acetaminophen 650 mg 01/07/25 20:06 Acetaminophen Supp 650 Mg Supp NC 02/06/25 20:05 Q4HR PRN PAIN SCALE 1-3 (mild Al Hydrox/Mg Hydrox/Simethicone 30 ml 01/07/25 20:06 Mg Hyd/Al Hyd/Erwin (Maalox Reg) Susp 30 Ml Udc PO 02/06/25 20:05 Q4HR PRN Heartburn or Upset Stomach Dextrose 25 ml 01/07/25 21:46 Dextrose 50%-Water Inj 50 Ml Syringe IV [id number] PRN Blood Sugar - Low Enoxaparin Sodium 40 mg 01/07/25 20:15 01/07/25 21:00 Enoxaparin Sod Inj 40 Mg/0.4 Ml Syringe SC 01/21/25 20:14 40 mg QDAY@2100 TATIANA Administration Insulin Human Regular 100 unit in 100 mls @ 4.4 mls/hr 01/07/25 18:38 01/08/25 06:38 Myxredlin IV 02/06/25 18:37 0.1 unit/kg/hr .[id number] PRN 4.4 mls/hr PER PROTOCOL Titration Protocol 0.1 UNIT/KG/HR Vancomycin/Sodium Chloride 100 mls @ 120 mls/hr 01/08/25 10:00 Vancomycin/Ns 500 Mg Ivpb IV 01/15/25 09:59 Q12H TATIANA Potassium Chloride 10 meq in 100 mls @ 100 mls/hr 01/07/25 21:46 01/08/25 06:21 Kcl Ivpb IV 02/06/25 21:45 100 mls/hr .Q1H PRN Administration IF POTASSIUM LESS THAN 3.3 Magnesium Sulfate 2 gm in 50 mls @ 25 mls/hr 01/07/25 21:46 Magnesium Sulfate Ivpb IV 02/06/25 21:45 .Q2H PRN PER DKA PROTOCOL Dextrose/Lactated Ringer's 1,000 mls @ 250 mls/hr 01/07/25 21:46 D5-Lr IV 02/06/25 21:45 .Q4H PRN PER PROTOCOL Lactated Ringer's 1,000 mls @ 250 mls/hr 01/07/25 21:46 01/08/25 03:01 Lactated Ringers IV 01/08/25 21:45 Infused .Q4H PRN Infusion PER PROTOCOL Potassium Chloride 20 meq/ 1,010 mls @ 250 mls/hr 01/07/25 21:46 01/08/25 03:50 Lactated Ringer's IV 02/06/25 21:45 250 mls/hr .Q4H3M PRN Administration K LEVEL 3.3 TO 5.3mM/L Potassium Chloride 40 meq/ 1,020 mls @ 250 mls/hr 01/07/25 21:46 Lactated Ringer's IV 02/06/25 21:45 .Q4H5M PRN K LEVEL < 3.3 mM/L Potassium Chloride 40 meq/ 1,020 mls @ 250 mls/hr 01/07/25 21:46 01/08/25 03:50 Dextrose/Lactated Ringer's IV 02/06/25 21:45 0 mls/hr .Q4H5M PRN Infusion K LEVEL < 3.3mM/L Potassium Cl/Dextrose/Lact Ringer's 20 meq in 1,000 mls @ 250 mls/hr 01/07/25 21:46 01/07/25 23:37 Kcl 20 Meq/L In D5-Lr IV 02/06/25 21:45 0 mls/hr .Q4H PRN Infusion K LEVEL 3.3 TO 5.3 mM/L Potassium Chloride 10 meq in 100 mls @ 50 mls/hr 01/07/25 21:46 01/08/25 00:32 Kcl Ivpb IV 02/06/25 21:45 Infused PRN PRN Infusion K LEVEL 3.3 to 5.3 & BG > 200 Potassium Phosphate 15 mmol in 250 mls @ 62.5 mls/hr 01/07/25 21:46 01/08/25 03:57 Pot Phos 15 Mmol In Ns 250 Ml IV 02/06/25 21:45 Infused PRN PRN Infusion Phosphate <= 1mg/dL Sodium Phosphate 15 mmol/ 255 mls @ 62.5 mls/hr 01/07/25 21:46 Sodium Chloride IV 02/06/25 21:45 .Q4H5M PRN Phosphate <= 1mg/dL and K> than 5.3 Potassium Chloride 10 meq in 100 mls @ 100 mls/hr 01/08/25 07:08 Kcl Ivpb IV 01/08/25 11:07 Q1H TATIANA Lactated Ringer's 1,000 mls @ 999 mls/hr 01/08/25 07:10 Lactated Ringers IV 01/08/25 08:10 .Q1H1M ONE Magnesium Hydroxide 30 ml 01/07/25 20:06 Milk Of Magnesia Susp 30 Ml Udc PO 02/06/25 20:05 QDAY PRN CONSTIPATION Pantoprazole Sodium 40 mg 01/08/25 09:00 Pantoprazole 40 Mg Tablet PO 02/07/25 08:59 QDAY TATIANA Sodium Bicarbonate 50 ml 01/07/25 21:46 Sodium Bicarb Inj 8.4% Syr 50 Ml Syringe IV 02/06/25 21:45 Q4HR PRN For ph <= to 7.0 Plan A 49-year-old female with Hx of insulin-dependent diabetes melitis complains of intermittent nausea, nonbloody nonbilious emesis for the past 4 days and abdominal pain for the past 2 weeks. She reports having lower abdominal pain with swelling and tenderness that started 2 weeks ago and has been progressing in severity. This first occurred after getting stuck by a thorn in the lumbar and feels. She recently saw her PCP who did certain imaging with reportedly fat tissue and the swelling of the abdominal wall. She describes running out of her medications for diabetes presented to her PCP last week Tuesday for refill, however the medication was never sent to her pharmacy. For the past 4 days she has not been on any diabetic medication. She denies chest pain, shortness of breath, dizziness, syncope, dysuria, bowel bladder dysfunction otherwise. Patient was admitted to the ICU for treatment and management of DKA. ENDO Uncontrolled insulin-dependent diabetes mellitus type 2 [HbA1c >14%] Diabetic ketoacidosis DDx: Noncompliance, MARIANN Dx: pH 7.17, OCO978, bicarb 13.3, beta hydroxybutyrate 5.6, glucose 350 Rx: Continue insulin infusion and IV fluids. Replete electrolytes as necessary. C-peptide ordered RRX: Monitor electrolytes and renal panel and anion gap. Transition to subcutaneous insulin once appropriate. Follow-up on C-peptide to assess for possible MARIANN GI/Hep Nausea DDx: Secondary to DKA Rx: Ondansetron 4mg IV q 6hrly as needed MSK/DERM Soft tissue swelling lower abdominal wall DDx: Abscess versus hematoma Dx: - CT abdomen/pelvis showed 9.7 x 4.5 x 8.3 cm). Differentials include abscess versus hematoma. - General Surgeon, Dr. Coyle assessed patient and says most likely soft tissue swelling is hematoma. Recommended warm compresses Rx: - Continue Zosyn 3.375 g IV every 8 hourly started on [01/07? and vancomycin IV daily pharmacy to dose started on [01/07? until culture results obtained. Warm compresses applied to lower abdominal wall - Acetaminophen as needed for pain. Dilaudid 0.5 Mg IV every 4 hourly as needed for severe pain RRX: Follow-up on culture results RENAL Hypophosphatemia Hypokalemia DDx: Secondary to insulin infusion Dx: K3.3, Phos 1.9 Rx: Repleted with KCl 40 mEq IV x 1 and Neutra-Phos packet p.o. x 1 RRX: Continue to monitor renal panel HEME/ONC Leukocytosis DDx: Secondary to DKA Dx: WBC 17.6?>12.4 Rx: Follow-up on blood and urine cultures and continue to monitor CBC ID See MSK NEURO No acute problems CVS No acute problems PULM No acute problems ICU Health maintenance: Dispo: Admit to ICU for management of DKA none Diet: n.p.o. DVT ppx: Enoxaparin 40mg SC daily GI ppx: None IV lines: 2 pIV Central line: No Arterial line: No Draper: No Code status: FULL CODE Plan of care discussed with Attending Dr. Toan Kelley MD PGY 1 Disclaimer: This note was dictated by speech recognition. Minor errors in checker and packer may be present due to voice recognition software. Attending Provider Attestation/Addendum Patient seen and examined with above resident, Yefri Kelley MD. I agree with the findings, assessment, and plan of care as documented except for any differences below. Patient admitted with diabetic ketoacidosis with abdominal abscess versus hematoma. 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 Bedside assessment done with surgery who did not feel that it was infected at this point but we did continue antibiotics and will monitor cultures. No plans for drainage at this point. Can use warm compress to help increase circulation to allow body to help break up any clot that may be present internally. Patient will remain in the ICU on IV insulin with ongoing aggressive IV fluid resuscitation. Close monitoring of electrolytes serially with aggressive replacement given often significant depletion secondary to osmotic diuresis from hyperglycemia for prolonged period. Patient remains n.p.o. at this time until she is ready transition. Appropriate prophylaxis with Lovenox, there is no fluctuation of hematoma/abscess and will continue to monitor for this for any significant bleeding at which point we will need to stop subcutaneous regimen. Nurses instructed to avoid the abdomen given site. Total critical care time: I personally spent 35 minutes for review of physiologic parameters, directing plan of care throughout the day, coordinate care with other specialist, and counseling patient at bedside. This is exclusive of time spent teaching housestaff or performing any separate billable procedures. Patient remains at significant risk for further morbidity and mortality warranting close monitoring and care only available in the ICU. Patient required critical care services for diabetic ketoacidosis and sepsis secondary to possible infected abdominal wall hematoma.
[2025-01-08] MEDS: RINGERS LACTATED 1000 ML 1,000 ML 999 ML IV (07:39)
[2025-01-08] MEDS: NAPH,KPH MBDB 1 PACKET (1.5 GM) PO (07:39)
[2025-01-08] MEDS: PANTOPRAZOLE 40 MG TABLET PO (08:52)
[2025-01-08] MEDS: PIPER/TAZO 3.375 GM PREMIX 3.375 GM/50 ML BAG IV ×3 (09:01→22:24)
--- NOTE | 2025-01-08 09:18 | PD.SURCONS ---
HPI Consult details History of present illness: 49F with IDDM who was admitted 01/07 with nausea and abdominal swelling, to ICU with findings of DKA. Pt was noted to have a protrusion of the lower abdominal wall, imaging suggesting hematoma vs abscess for which general surgery is consulted. Pt states she hit the area while she was working a couple weeks ago and it has become increasingly swollen and tender. She denies any fever or malaise Review of Systems Review of Systems ROS Unobtainable: All systems reviewed & no additional complaints except as documented Meds Home Medications and Allergies Home Medications ?Medication ?Instructions ?Recorded ?Confirmed ?Type insulin aspart U-100 100 unit/mL 1 sliding scale dose subcut 01/08/25 01/08/25 History (3 mL) subcutaneous pen (Novolog USEASDIRECTD FlexPen U-100 Insulin aspart) Allergies Allergy/AdvReac Type Severity Reaction Status Date / Time No Known Allergies Allergy Verified 01/07/25 14:37 Exam Vital Signs Temp Pulse Resp BP Pulse Ox O2 Del Method 98.4 F 76 21 H 142/84 H 100 Room Air 01/08/25 08:00 01/08/25 09:00 01/08/25 09:00 01/08/25 09:00 01/08/25 09:00 01/08/25 08:00 Constitutional Constitutional: no acute distress Routine Respiratory Exam Respiratory: Present no resp distress Routine Abdominal Exam Abdominal: Present soft and tenderness (area of swelling inferior to umbilicus which is mildly tender, nonerythematous, not fluctuant, no overlying skin changes); Absent distended or rebound Results Results: Laboratory Laboratory results: results reviewed Results: Imaging CT scan - abdomen: report reviewed and image reviewed US - abdomen: report reviewed Assessment & Plan Plan 49F with IDDM admitted in DKA additionally noted to have an area of swelling of the abdominal wall. Clinically the area does not show any signs of infection, so I would not pursue any intervention which would pose a risk of introducing infection Warm compresses TID Please reconsult if needed
[2025-01-08] MEDS: VANCOMYCIN/NS 500 MG IVPB 100 ML 120 MG IV ×2 (09:43→21:22)
[2025-01-08 10:07] LABS: Lactate (Lactic Acid) 1.2 mMol/L (0.4-2.0)
[2025-01-08 10:37] LABS: Albumin, Serum 2.9 gm/dL (3.5-5.0); Anion Gap 12 (7-16); BUN/Creatinine Ratio 10 Ratio (12-20); Blood Urea Nitrogen < 5 mg/dL (9-23); Calcium 7.9 mg/dL (8.3-10.6); Calcium (Corrected) 8.8 mg/dL (8.5-10.1); Carbon Dioxide 17.2 mMol/L (20.0-31.0); Chloride 107 mMol/L (98-107); Creatinine (Component) 0.5 mg/dL (0.6-1.3); Estimated Creatinine Clearance 82.9 mL/min (>60); Glucose 208 mg/dL (74-106); Magnesium 1.6 mg/dL (1.6-2.6); Osmolality,Calculated 275 (275-295); Sodium 136 mMol/L (136-145); eGFR > 60 See Note
[2025-01-08 10:51] LABS: Phosphorous 0.7 mg/dL (2.4-5.1)
[2025-01-08] MEDS: POT PHOS 15 mMol in NS 250 ML 15 MMOL/250 ML BAG 62.5 MMOL IV ×4 (10:55→19:26)
[2025-01-08] MEDS: Magnesium Sulfate 2 GM Ivpb 2 GM/50 ML BAG IV (11:16)
[2025-01-08] MEDS: KETOROLAC INJ 30 MG/ML VIAL IVP (14:09)
[2025-01-08 14:29] LABS: Lactate (Lactic Acid) 1.6 mMol/L (0.4-2.0)
[2025-01-08 14:53] LABS: Anion Gap 7 (7-16); BUN/Creatinine Ratio 13 Ratio (12-20); Blood Urea Nitrogen < 5 mg/dL (9-23); Calcium 7.7 mg/dL (8.3-10.6); Calcium (Corrected) 8.5 mg/dL (8.5-10.1); Carbon Dioxide 21.8 mMol/L (20.0-31.0); Chloride 107 mMol/L (98-107); Creatinine (Component) 0.4 mg/dL (0.6-1.3); Estimated Creatinine Clearance 103.7 mL/min (>60); Glucose 193 mg/dL (74-106); Osmolality,Calculated 274 (275-295); Phosphorous 1.5 mg/dL (2.4-5.1); Potassium 3.3 mMol/L (3.4-5.1); Sodium 136 mMol/L (136-145); eGFR > 60 See Note
[2025-01-08] MEDS: INSULIN GLARGINE (Lantus) 5 UNIT/0.05 ML (PER 5 UNITS) 25 UNIT SC (15:49)
--- NOTE | 2025-01-08 16:05 | PC.SS ---
LAMP SHADE ASSEMBLER conducted bedside contact with the patient conduct initial assessment and to discuss discharge planning.? LAMP SHADE ASSEMBLER utilized java mobile developer to assist with discussion.? Patient confirmed demographic information.? Patient resides at home with spouse, Mikael Whitten .? Patient does not utilize DME to assist with ambulation.? Patient does not require the use of oxygen.? Patient describes the ability to complete ADL?s independently.? Patient identified spouse, Mikael Whitten; as surrogate medical decision maker.? Patient utilizes [facility] for PCP services.? Patient utilizes [facility] for medication services.? Patient is diabetic insulin dependent.? Discharge plan is for the patient to return home.? Family will provide transportation on behalf of the patient.? No further discharge needs identified by the patient.? No further intervention required at this time, aids social worker will be available to address any further concerns.? Next of Kin: Mikael Whitten D/C Plan: Home
--- NOTE | 2025-01-08 16:07 | PC.SS ---
Patient's home address is [address] [place] [address], [place]
[2025-01-08 21:15] LABS: Albumin, Serum 3.1 gm/dL (3.5-5.0); Anion Gap 10 (7-16); BUN/Creatinine Ratio 13 Ratio (12-20); Blood Urea Nitrogen < 5 mg/dL (9-23); Calcium 8.3 mg/dL (8.3-10.6); Carbon Dioxide 22.7 mMol/L (20.0-31.0); Chloride 100 mMol/L (98-107); Creatinine (Component) 0.4 mg/dL (0.6-1.3); Estimated Creatinine Clearance 103.7 mL/min (>60); Glucose 220 mg/dL (74-106); Osmolality,Calculated 270 (275-295); Phosphorous 2.7 mg/dL (2.4-5.1); Sodium 133 mMol/L (136-145); eGFR > 60 See Note
[2025-01-08] MEDS: INSULIN LISPRO (AdmeLOG) 1 UNIT/0.01 ML UNIT SC (21:36)
[2025-01-08] MEDS: ENOXAPARIN SOD INJ 40 MG/0.4 ML SYRINGE SC (21:36)
[2025-01-09] VITALS (20 sets, daily range): BP systolic 90–134; BP diastolic 59–93; PULSE 71–94; RESP 11–221; TEMP 36.2–36.8; O2SAT 96–99
[2025-01-09] MEDS: HYDROmorphone INJ 2 MG/ML VIAL 0.5 MG IVP ×2 (00:26→06:12)
[2025-01-09] MEDS: PIPER/TAZO 3.375 GM PREMIX 3.375 GM/50 ML BAG IV (05:24)
[2025-01-09 05:33] LABS: Basophils % (Auto) 0 % (0-2.5); Eosinophils # (Auto) 0.1 Thou/mm3 (0.0-0.5); Eosinophils % (Auto) 1 % (0-10); Hematocrit 35.5 % (36.0-46.0); Hemoglobin 13.1 g/dL (12.0-16.0); Immature Granulocytes % (Auto) 1 % (0-0); Immature Granulocytes Auto 0.05 Thou/mm3 (0.00-0.00); Lymphocytes # (Auto) 1.6 Thou/mm3 (1.0-4.8); Lymphocytes % (Auto) 16 % (10-50); Mean Corpuscular HGB Conc 36.9 g/dl (31.0-37.0); Mean Corpuscular Hemoglobin 29.7 pg (25.0-35.0); Mean Corpuscular Volume 81 fL (80-100); Monocytes % (Auto) 10 % (0-12); Neutrophils # (Auto) 7.3 Thou/mm3 (1.8-7.7); Neutrophils % (Auto) 72 % (37-80); Nucleated Red Blood Cell % 0 /100 WBC (0); Platelet Count 277 Thou/mm3 (140-440); RDW Standard Deviation 35.3 fL (36.4-46.3); Red Blood Count 4.41 Miln/mm3 (4.00-5.20); White Blood Count 10.1 Thou/mm3 (3.6-11.0)
[2025-01-09 05:51] LABS: Anion Gap 9 (7-16); BUN/Creatinine Ratio 13 Ratio (12-20); Blood Urea Nitrogen < 5 mg/dL (9-23); Calcium 8.2 mg/dL (8.3-10.6); Carbon Dioxide 28.7 mMol/L (20.0-31.0); Chloride 100 mMol/L (98-107); Creatinine (Component) 0.4 mg/dL (0.6-1.3); Estimated Creatinine Clearance 103.7 mL/min (>60); Glucose 146 mg/dL (74-106); Osmolality,Calculated 275 (275-295); Phosphorous 2.6 mg/dL (2.4-5.1); Potassium 2.8 mMol/L (3.4-5.1); Sodium 138 mMol/L (136-145); eGFR > 60 See Note
[2025-01-09] MEDS: INSULIN LISPRO (AdmeLOG) 1 UNIT/0.01 ML UNIT 5 UNIT SC ×3 (07:39→17:55)
[2025-01-09] MEDS: INSULIN LISPRO (AdmeLOG) 1 UNIT/0.01 ML UNIT SC ×4 (07:40→21:16)
[2025-01-09] MEDS: Magnesium Sulfate 2 GM Ivpb 2 GM/50 ML BAG IV (07:41)
[2025-01-09] MEDS: PANTOPRAZOLE 40 MG TABLET PO (08:18)
[2025-01-09] MEDS: POTASSIUM CHLORIDE 20 mEq TABCR 40 MEQ PO (08:18)
[2025-01-09] MEDS: POTASSIUM CHL 10 mEq IVPB 10 MEQ/100 ML BAG 100 MEQ IV ×5 (08:31→13:36)
--- NOTE | 2025-01-09 09:02 | EKG_ITS ---
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
[2025-01-09] MEDS: METOCLOPRAMIDE INJ 5 MG/ML VIAL 2 ML 10 MG IVP ×3 (09:11→21:17)
--- NOTE | 2025-01-09 10:44 | PD.RESPRO ---
Documentation for date of: 01/09/25 Subjective Subjective Interval history: A 49-year-old female with Hx of insulin-dependent diabetes melitis complains of intermittent nausea, nonbloody nonbilious emesis for the past 4 days and abdominal pain for the past 2 weeks. She reports having lower abdominal pain with swelling and tenderness that started 2 weeks ago and has been progressing in severity. This first occurred after getting stuck by a thorn in the lumbar and feels. She recently saw her PCP who did certain imaging with reportedly fat tissue and the swelling of the abdominal wall. She describes running out of her medications for diabetes presented to her PCP last week Tuesday for refill, however the medication was never sent to her pharmacy. For the past 4 days she has not been on any diabetic medication. She denies chest pain, shortness of breath, dizziness, syncope, dysuria, bowel bladder dysfunction otherwise. Patient was admitted to the ICU for treatment and management of DKA. 01/08/2025: No events overnight. Patient seen and examined at bedside this a.m. Endorses 8/10 constant lower abdominal pain around area of swollen, worse on palpation. WBC decreased to 12.4 from 17.6, K3.3, bicarb 13.4, glucose 254, anion gap 15, HbA1c 14%, phosphorus 1.9. CT abdomen/pelvis showed 9.7 x 4.5 x 8.3 cm soft tissue swelling in lower abdomen differentials include abscess versus hematoma. General surgeon, Dr. Coyle consulted and examined patient this morning, she says most likely soft tissue swelling with hematoma and no need for surgical intervention at this time. Given 1L LR IVF bolus, Neutra-Phos 1 packet p.o. x 1. Continue Zosyn 3.375 g IV Q8 hourly and vancomycin pharmacy to dose for abdominal wall hematoma versus abscess. 01/09/2025: Overnight no events. Patient was transitioned to subcutaneous insulin from infusion yesterday. This morning patient feels well but still complains of abdominal pain over her hematoma, also had episodes of vomiting KCl liquid. WBC decreased to 10.1 from 12.4, K2.8. Patient repeated with KCl 40 mEq p.o. x 1 and KCl 40 mEq IV times. On insulin glargine 25U SC at bedtime scheduled and lispro 5 units 3 times daily with meals. Started on metoclopramide 10 Mg IV every 8 hourly. Renal panel at 1 PM. After potassium repleted and patient clinically stable, for downgrade to the floor. Exam Vital Signs Temp Pulse Resp BP Pulse Ox O2 Del Method 97.5 F 85 20 108/69 96 Room Air 01/09/25 08:00 01/09/25 10:00 01/09/25 10:00 01/09/25 10:00 01/09/25 10:00 01/09/25 08:00 Narrative Exam Constitutional Alert, oriented x 3 and comfortable. Middle-age female HEENT Vision grossly intact. Patent nares. Trachea midline Respiratory Chest normal on inspection and improved air entry at bases posteriorly with mild crackles. Cardiovascular S1 and S2 audible, RRR. No murmurs carotid bruit. No gross JVD. Abdominal Soft and non tender to palpation in all upper quadrants. 10 x 10 lower abdominal soft tissue swelling, erythematous, tender to palpation, nonfluctuant, no punctum seen. BS + Genitourinary No bladder tenderness, no flank pain. Normal to palpation Musculoskeletal Extremities tone within normal limits. No LE edema. Neurological CN II - XII grossly intact. Extremity motor and sensation grossly intact. Skin Warm, dry and intact. No apparent lesions. Psychiatric Patient has good affect, is cooperative Objective Labs 01/10/25 05:29 01/10/25 05:29 Labs: Laboratory Results - last 24 hr 01/08/25 01/08/25 01/08/25 09:59 14:01 20:32 WBC RBC Hgb Hct MCV MCH MCHC RDW Std Deviation Plt Count Neut % (Auto) Lymph % (Auto) [place] % (Auto) Eos % (Auto) Baso % (Auto) Neut # (Auto) Lymph # (Auto) [place] # (Auto) Eos # (Auto) Baso # (Auto) Immature Gran # (Auto) Absolute Nucleated RBC Immature Gran % Nucleated RBC % Sodium 136 136 133 L Potassium 3.0 L 3.3 L 3.0 L Chloride 107 107 100 Carbon Dioxide 17.2 L 21.8 22.7 Anion Gap 12 7 10 BUN < 5 L < 5 L < 5 L Creatinine 0.5 L 0.4 L 0.4 L Estim Creat Clear Calc 82.9 103.7 103.7 eGFR > 60 > 60 > 60 BUN/Creatinine Ratio 10 L 13 13 Glucose 208 H 193 H 220 H Calculated Osmolality 275 274 L 270 L Lactic Acid 1.6 Calcium 7.9 L 7.7 L 8.3 Corrected Calcium 8.8 8.5 9.0 Phosphorus 0.7 L* 1.5 L 2.7 Magnesium 1.6 2.0 Albumin 2.9 L 3.0 L 3.1 L 01/09/25 04:30 WBC 10.1 RBC 4.41 Hgb 13.1 Hct 35.5 L MCV 81 MCH 29.7 MCHC 36.9 RDW Std Deviation 35.3 L Plt Count 277 D Neut % (Auto) 72 Lymph % (Auto) 16 [place] % (Auto) 10 Eos % (Auto) 1 Baso % (Auto) 0 Neut # (Auto) 7.3 Lymph # (Auto) 1.6 [place] # (Auto) 1.0 H Eos # (Auto) 0.1 Baso # (Auto) 0.0 Immature Gran # (Auto) 0.05 H Absolute Nucleated RBC 0.00 Immature Gran % 1 H Nucleated RBC % 0 Sodium 138 Potassium 2.8 L Chloride 100 Carbon Dioxide 28.7 Anion Gap 9 BUN < 5 L Creatinine 0.4 L Estim Creat Clear Calc 103.7 eGFR > 60 BUN/Creatinine Ratio 13 Glucose 146 H D Calculated Osmolality 275 Lactic Acid Calcium 8.2 L Corrected Calcium 9.0 Phosphorus 2.6 Magnesium 2.0 Albumin 3.0 L ABG Interpretation ABG results: 01/07/25 18:28 ABG pH 7.17 L* ABG pCO2 14 L* ABG pO2 122 H ABG HCO3 5 L* ABG O2 Saturation 97 ABG Base Excess -21 L Quality Measures Quality Measures none Assessment & Plan Assessment Current Active Medications: Generic Name Dose Route Start Last Admin Trade Name Freq PRN Reason Stop Dose Admin Acetaminophen 650 mg 01/09/25 07:44 Acetaminophen 325 Mg Tablet PO 02/06/25 20:05 Q4HR PRN Pain 1-3 or Temp >100 Dextrose 50 ml 01/08/25 15:27 Dextrose 50%-Water Inj 50 Ml Syringe IV 02/07/25 15:26 Q15MIN PRN BG <50 OR BG <70 & pt unresponsive Enoxaparin Sodium 40 mg 01/07/25 20:15 01/08/25 21:36 Enoxaparin Sod Inj 40 Mg/0.4 Ml Syringe SC 01/21/25 20:14 40 mg QDAY@2100 TATIANA Administration Glucagon 1 mg 01/08/25 15:27 Glucagon Inj 1 Mg Vial IM Q15MIN PRN BG <70, and no IV access Hydromorphone HCl 0.5 mg 01/08/25 14:21 01/09/25 06:12 Hydromorphone Inj 2 Mg/Ml Vial IVP 01/13/25 14:20 0.5 mg Q4HR PRN Administration PAIN SCALE 7-10 (Severe Piperacillin/Tazobactam/Dextrose 3.375 gm in 50 mls @ 12.5 mls/hr 01/08/25 14:00 01/09/25 05:24 Zosyn IV 01/15/25 13:59 12.5 mls/hr Q8HR TATIANA Administration Potassium Chloride 10 meq in 100 mls @ 100 mls/hr 01/09/25 08:24 01/09/25 10:41 Kcl Ivpb IV 01/09/25 12:23 100 mls/hr Q1H TATIANA Administration Insulin Human Lispro 5 unit 01/08/25 17:30 01/09/25 07:39 Insulin Lispro (Admelog) 1 Unit/0.01 Ml Unit SC 02/07/25 17:29 5 unit TIDWM TATIANA Administration Insulin Human Lispro 0 unit 01/08/25 17:00 01/09/25 07:40 Insulin Lispro (Admelog) 1 Unit/0.01 Ml Unit SC 02/07/25 16:59 1 unit ACHS TATIANA Administration Protocol Magnesium Hydroxide 30 ml 01/07/25 20:06 Milk Of Magnesia Susp 30 Ml Udc PO 02/06/25 20:05 QDAY PRN CONSTIPATION Magnesium Hydroxide 30 ml 01/09/25 14:00 Milk Of Magnesia Susp 30 Ml Udc PO 01/09/25 14:01 X1 ONE Protocol Metoclopramide HCl 10 mg 01/09/25 09:15 01/09/25 09:11 Metoclopramide Inj 5 Mg/Ml Vial 2 Ml IVP 02/08/25 09:14 10 mg Q8HR TATIANA Administration Protocol Ondansetron HCl 4 mg 01/08/25 14:41 Ondansetron Inj 2 Mg/Ml Inj 2 Ml IVP 02/07/25 14:40 Q6HR PRN NAUSEA OR VOMITING Protocol Pantoprazole Sodium 40 mg 01/08/25 09:00 01/09/25 08:18 Pantoprazole 40 Mg Tablet PO 02/07/25 08:59 40 mg QDAY TATIANA Administration Plan A 49-year-old female with Hx of insulin-dependent diabetes melitis complains of intermittent nausea, nonbloody nonbilious emesis for the past 4 days and abdominal pain for the past 2 weeks. She reports having lower abdominal pain with swelling and tenderness that started 2 weeks ago and has been progressing in severity. This first occurred after getting stuck by a thorn in the lumbar and feels. She recently saw her PCP who did certain imaging with reportedly fat tissue and the swelling of the abdominal wall. She describes running out of her medications for diabetes presented to her PCP last week Tuesday for refill, however the medication was never sent to her pharmacy. For the past 4 days she has not been on any diabetic medication. She denies chest pain, shortness of breath, dizziness, syncope, dysuria, bowel bladder dysfunction otherwise. Patient was admitted to the ICU for treatment and management of DKA. ENDO Uncontrolled insulin-dependent diabetes mellitus type 2 [HbA1c >14%] Diabetic ketoacidosis?resolved DDx: Noncompliance, MARIANN Dx: On admission pH 7.17, [id number], bicarb 13.3, beta hydroxybutyrate 5.6, glucose 350. Currently AG 9, bicarb 28.7 Rx: Transitioned to insulin glargine 25U SC at bedtime, insulin lispro 5U SC twice daily with meals and correction scale for any blood glucose spikes. Recommend patient be prescribed insulin Tresiba upon discharge long with metformin. RRX: Follow-up on C-peptide as outpatient. Also recommend outpatient FELIPE antibody testing GI/Hep Nausea and vomiting DDx: Secondary to DKA, diabetic gastroparesis Rx: Ondansetron 4mg IV q 6hrly as needed. Started on metoclopramide 10 Mg IV Q8 hourly RRX: Repeat EKG ordered to monitor QTc MSK/DERM Abdominal wall hematoma Dx: - CT abdomen/pelvis showed 9.7 x 4.5 x 8.3 cm). Differentials include abscess versus hematoma. - General Surgeon, Dr. Coyle assessed patient and says most likely soft tissue swelling is hematoma. Recommended warm compresses Rx: - Warm compresses applied to lower abdominal wall - Continue Zosyn 3.375 g IV every 8 hourly started on [6/23? discontinued vancomycin. - Once culture results negative to discontinue antibiotics - Acetaminophen as needed for pain. Dilaudid 0.5 Mg IV every 4 hourly as needed for severe pain RRX: Follow-up on culture results RENAL Hypokalemia DDx: Secondary to insulin Dx: K2.8 Rx: Repleted with KCl 40 mEq IV x 1 KCl 40 mEq p.o. x 1 RRX: repeat renal panel at 1 PM HEME/ONC Leukocytosis?resolved DDx: Secondary to DKA Dx: WBC 17.6?>12.4?>10.1 ID See MSK NEURO No acute problems CVS No acute problems PULM No acute problems ICU Health maintenance: Dispo: After repeat renal panel and clinically stable for downgrade to the floor this afternoon Diet: Low consistent carb DVT ppx: Enoxaparin 40mg SC daily GI ppx: Pantoprazole IV lines: 2 pIV Central line: No Arterial line: No Draper: No Code status: FULL CODE Plan of care discussed with Attending Dr. Toan Kelley MD PGY 1 Disclaimer: This note was dictated by speech recognition. Minor errors in assistant basketball coach may be present due to voice recognition software. Attending Provider Attestation/Addendum Patient seen and examined with resident, Yefri Kelley MD. I agree with the findings, assessment, and plan of care as documented except for any differences below. Patient has had resolution of her DKA overnight. Has been successfully transition and tolerating p.o. Patient ambulated today with physical therapy and tolerated well. Continues to have significant abdominal pain at site of possible abscess, favor hematoma at this point as per surgical consultation. Patient's cultures remain negative and though MRSA screening is pending, would favor discontinuation of antibiotics at this point. Continue to monitor site and consider repeat imaging with ultrasound to assess evolution. Patient remains afebrile and with normal CBC though this may be related to adequate fluid resuscitation during volume repletion for DKA and not sure sepsis. No plans for drainage of abdominal wall hematoma/fluid collection, this will need to be reconsidered should the patient develop fevers suggesting superimposed infection. Patient remains hemodynamically stable and has doing well with plan for transition to the medicine guzman for ongoing management prior to discharge in coming days. Total critical care time: I personally spent 35 minutes review of physiologic parameters, directed plan of care throughout the day, coordination of care with other specialists, and counseling patient at bedside. This is exclusive of time spent teaching housestaff performing any separate billable procedures. Patient required critical care services for diabetic ketoacidosis without coma, abdominal wall hematoma, multiple electrolyte derangements including hypophosphatemia and hypokalemia. She remains at significant risk for further morbidity and mortality warranting close monitoring and care only available in the intensive care unit.
[2025-01-09 14:00] LABS: Potassium 3.9 mMol/L (3.4-5.1)
--- NOTE | 2025-01-09 14:28 | ESPR_ITS ---
Documentation for date of: 01/09/25 Subjective Subjective Interval history: Ms. Horne is a 49-year-old female with past medical history of insulin- dependent diabetes mellitus who presented to [facility] for intermittent nausea nonbloody emesis and abdominal pain. Patient was admitted to the intensive care unit due to underlying diabetic ketoacidosis. Patient transition to Lantus 25 units at bedtime and lispro 5 units 3 times daily with meals, patient currently sitting in chair eating lunch. Patient also has abdominal wall hematoma which was assessed by general surgeon Dr. Tavera who recommends warm compresses. Patient does complain of some abdominal pain which is being managed with IV pain medication. Patient downgraded to telemetry after gap closed x 2 and will transition to subcutaneous insulin, will resume care. Exam Vital Signs Temp Pulse Resp BP Pulse Ox O2 Del Method 98.2 F 92 14 126/86 H 98 Room Air 01/09/25 12:00 01/09/25 14:00 01/09/25 14:00 01/09/25 14:00 01/09/25 14:00 01/09/25 12:00 Narrative Exam Constitutional: Alert, oriented x 3 and comfortable. Middle-age female HEENT: Vision grossly intact. Patent nares. Trachea midline Respiratory: Chest normal on inspection and improved air entry at bases posteriorly with mild crackles. Cardiovascular: S1 and S2 audible, RRR. No murmurs carotid bruit. No gross JVD. Abdominal: Soft and non tender to palpation in all upper quadrants. 10 x 10 lower abdominal soft tissue swelling, erythematous, tender to palpation, nonfluctuant, no punctum seen. BS + Genitourinary: No bladder tenderness, no flank pain. Normal to palpation Musculoskeletal: Extremities tone within normal limits. No LE edema. Neurological: CN II - XII grossly intact. Extremity motor and sensation grossly intact. Skin: Warm, dry and intact. No apparent lesions. Psychiatric: Patient has good affect, is cooperative Objective Labs 01/09/25 04:30 01/09/25 13:40 Labs: Laboratory Results - last 24 hr 01/08/25 01/08/25 01/09/25 14:01 20:32 04:30 WBC 10.1 RBC 4.41 Hgb 13.1 Hct 35.5 L MCV 81 MCH 29.7 MCHC 36.9 RDW Std Deviation 35.3 L Plt Count 277 D Neut % (Auto) 72 Lymph % (Auto) 16 [place] % (Auto) 10 Eos % (Auto) 1 Baso % (Auto) 0 Neut # (Auto) 7.3 Lymph # (Auto) 1.6 [place] # (Auto) 1.0 H Eos # (Auto) 0.1 Baso # (Auto) 0.0 Immature Gran # (Auto) 0.05 H Absolute Nucleated RBC 0.00 Immature Gran % 1 H Nucleated RBC % 0 Sodium 136 133 L 138 Potassium 3.3 L 3.0 L 2.8 L Chloride 107 100 100 Carbon Dioxide 21.8 22.7 28.7 Anion Gap 7 10 9 BUN < 5 L < 5 L < 5 L Creatinine 0.4 L 0.4 L 0.4 L Estim Creat Clear Calc 103.7 103.7 103.7 eGFR > 60 > 60 > 60 BUN/Creatinine Ratio 13 13 13 Glucose 193 H 220 H 146 H D Calculated Osmolality 274 L 270 L 275 Lactic Acid 1.6 Calcium 7.7 L 8.3 8.2 L Corrected Calcium 8.5 9.0 9.0 Phosphorus 1.5 L 2.7 2.6 Magnesium 2.0 2.0 Albumin 3.0 L 3.1 L 3.0 L 01/09/25 13:40 WBC RBC Hgb Hct MCV MCH MCHC RDW Std Deviation Plt Count Neut % (Auto) Lymph % (Auto) [place] % (Auto) Eos % (Auto) Baso % (Auto) Neut # (Auto) Lymph # (Auto) [place] # (Auto) Eos # (Auto) Baso # (Auto) Immature Gran # (Auto) Absolute Nucleated RBC Immature Gran % Nucleated RBC % Sodium Potassium 3.9 D Chloride Carbon Dioxide Anion Gap BUN Creatinine Estim Creat Clear Calc eGFR BUN/Creatinine Ratio Glucose Calculated Osmolality Lactic Acid Calcium Corrected Calcium Phosphorus Magnesium Albumin ABG Interpretation ABG results: 01/07/25 18:28 ABG pH 7.17 L* ABG pCO2 14 L* ABG pO2 122 H ABG HCO3 5 L* ABG O2 Saturation 97 ABG Base Excess -21 L Quality Measures Quality Measures none Assessment & Plan Assessment Current Active Medications: Generic Name Dose Route Start Last Admin Trade Name Freq PRN Reason Stop Dose Admin Acetaminophen 650 mg 01/09/25 11:48 Acetaminophen 325 Mg Tablet PO 02/08/25 07:43 Q6HR PRN Pain 1-3 or Temp >99.9 Dextrose 50 ml 01/08/25 15:27 Dextrose 50%-Water Inj 50 Ml Syringe IV 02/07/25 15:26 Q15MIN PRN BG <50 OR BG <70 & pt unresponsive Glucagon 1 mg 01/08/25 15:27 Glucagon Inj 1 Mg Vial IM Q15MIN PRN BG <70, and no IV access Hydromorphone HCl 0.5 mg 01/08/25 14:21 01/09/25 06:12 Hydromorphone Inj 2 Mg/Ml Vial IVP 01/13/25 14:20 0.5 mg Q4HR PRN Administration PAIN SCALE 7-10 (Severe Insulin Glargine 25 unit 01/09/25 21:00 Insulin Glargine (Lantus) 5 Unit/0.05 Ml (Per 5 Units) SC 02/08/25 20:59 HS TATIANA Insulin Human Lispro 5 unit 01/08/25 17:30 01/09/25 12:00 Insulin Lispro (Admelog) 1 Unit/0.01 Ml Unit SC 02/07/25 17:29 5 unit TIDWM TATIANA Administration Insulin Human Lispro 0 unit 01/08/25 17:00 01/09/25 12:00 Insulin Lispro (Admelog) 1 Unit/0.01 Ml Unit SC 02/07/25 16:59 2 unit ACHS [facility] Administration Protocol Magnesium Hydroxide 30 ml 01/07/25 20:06 Milk Of Magnesia Susp 30 Ml Udc PO 02/06/25 20:05 QDAY PRN CONSTIPATION Metoclopramide HCl 10 mg 01/09/25 09:15 01/09/25 09:11 Metoclopramide Inj 5 Mg/Ml Vial 2 Ml IVP 02/08/25 09:14 10 mg Q8HR [facility] Administration Protocol Pantoprazole Sodium 40 mg 01/08/25 09:00 01/09/25 08:18 Pantoprazole 40 Mg Tablet PO 02/07/25 08:59 40 mg QDAY [facility] Administration Plan Summary: Ms. Horne is a 49-year-old female with past medical history of insulin-dependent diabetes mellitus who presented to [facility] for intermittent nausea nonbloody emesis and abdominal pain. Patient was admitted to the intensive care unit due to underlying diabetic ketoacidosis. Patient downgraded to telemetry after anion gap closed x 2 and was transitioned to subcutaneous insulin. #Uncontrolled insulin-dependent diabetes mellitus type 2 [HbA1c >14%] #Diabetic ketoacidosis?resolved Patient likely noncompliant, on admission pH 7.17, pCO2 14, bicarb 13.3, beta hydroxybutyrate 5.6, glucose 350, hemoglobin A1c more than 14 - Insulin glargine 25 units at bedtime - Insulin lispro 5 units subcutaneous 3 times daily - Sliding scale insulin - Hypoglycemia protocol - Will need close outpatient follow-up for optimization - On scheduled Reglan due to suspicion of diabetic gastroparesis #Abdominal wall hematoma CT abdomen/pelvis showed 9.7 x 4.5 x 8.3 cm). Differentials include abscess versus hematoma. General Surgeon, Dr. Coyle assessed patient and says most likely soft tissue swelling is hematoma. Recommended warm compresses Plan: - Continue Zosyn 3.375 g IV every 8 hourly started on [01/07? - Patient received vancomycin which was discontinued on 01/07 - Acetaminophen as needed for pain. Dilaudid 0.5 Mg IV every 4 hourly as needed for severe pain - Follow blood culture - Hold DVT prophylaxis or any anticoagulation DVT prophylaxis: SCDs GI prophylaxis: Not Indicated Diet: Carb consistent low Lines: Peripheral IV Code status: Full code Case discussed with Attending Dr. Awan. Mora Chris PGY1 Disclaimer: This note was dictated by speech recognition. Minor errors in screener operator may be present due to voice recognition software. Attending Provider Attestation/Addendum I have discussed and was present for the essential components of the history, physical examination, diagnosis, and treatment plan with the resident. I agree with the patient's care as documented by the resident and amended herein by me. Lee Awan DO. Although this document has been carefully reviewed, there may still be some phonetic and other typographical errors. These errors are purely grammatical due to imperfections in the software program and should not be construed in any way to compromise the substance of the patient's medical care during this visit.
--- NOTE | 2025-01-09 16:06 | PC.SS ---
Update: Patient to downgrade from ICU to Med/Surg.
--- NOTE | 2025-01-09 16:16 | PC.DIETICIAN ---
Nutrition Education (DKA; A1C >14): Patient was educated on dietary management of diabetes; written material was provided for future reference. *Consider prescribing a RotoPop [place] 3 Plus sensor + Garden prior to discharge.
[2025-01-09] MEDS: ACETAMINOPHEN 325 MG TABLET 650 MG PO (16:32)
--- NOTE | 2025-01-09 16:46 | PC.PT ---
Patient can ambulate with or with staff assist prn.
[2025-01-09] MEDS: INSULIN GLARGINE (Lantus) 5 UNIT/0.05 ML (PER 5 UNITS) 25 UNIT SC (21:15)
[2025-01-10] VITALS (8 sets, daily range): BP systolic 94–112; BP diastolic 56–66; PULSE 74–95; RESP 13–97; TEMP 36.1–36.7; O2SAT 95–99
[2025-01-10] MEDS: ACETAMINOPHEN 325 MG TABLET 650 MG PO ×3 (02:36→20:21)
[2025-01-10] MEDS: METOCLOPRAMIDE INJ 5 MG/ML VIAL 2 ML 10 MG IVP ×3 (05:22→21:30)
[2025-01-10 05:45] LABS: Basophils % (Auto) 0 % (0-2.5); Eosinophils % (Auto) 0 % (0-10); Hematocrit 35.9 % (36.0-46.0); Hemoglobin 12.8 g/dL (12.0-16.0); Immature Granulocytes % (Auto) 1 % (0-0); Immature Granulocytes Auto 0.05 Thou/mm3 (0.00-0.00); Lymphocytes # (Auto) 1.2 Thou/mm3 (1.0-4.8); Lymphocytes % (Auto) 11 % (10-50); Mean Corpuscular HGB Conc 35.7 g/dl (31.0-37.0); Mean Corpuscular Hemoglobin 30.1 pg (25.0-35.0); Mean Corpuscular Volume 85 fL (80-100); Monocytes # (Auto) 0.8 Thou/mm3 (0.0-0.8); Monocytes % (Auto) 7 % (0-12); Neutrophils # (Auto) 8.5 Thou/mm3 (1.8-7.7); Neutrophils % (Auto) 80 % (37-80); Nucleated Red Blood Cell % 0 /100 WBC (0); Platelet Count 291 Thou/mm3 (140-440); Red Blood Count 4.25 Miln/mm3 (4.00-5.20); White Blood Count 10.6 Thou/mm3 (3.6-11.0)
[2025-01-10 06:45] LABS: Albumin, Serum 3.1 gm/dL (3.5-5.0); Anion Gap 7 (7-16); BUN/Creatinine Ratio 13 Ratio (12-20); Blood Urea Nitrogen < 5 mg/dL (9-23); Calcium 8.4 mg/dL (8.3-10.6); Calcium (Corrected) 9.1 mg/dL (8.5-10.1); Carbon Dioxide 31.8 mMol/L (20.0-31.0); Chloride 98 mMol/L (98-107); Creatinine (Component) 0.4 mg/dL (0.6-1.3); Estimated Creatinine Clearance 116.2 mL/min (>60); Glucose 133 mg/dL (74-106); Magnesium 2.1 mg/dL (1.6-2.6); Osmolality,Calculated 273 (275-295); Phosphorous 3.3 mg/dL (2.4-5.1); Potassium 3.1 mMol/L (3.4-5.1); Sodium 137 mMol/L (136-145); eGFR > 60 See Note
[2025-01-10] MEDS: POTASSIUM CHLORIDE 20 mEq TABCR 40 MEQ PO (08:15)
[2025-01-10] MEDS: INSULIN LISPRO (AdmeLOG) 1 UNIT/0.01 ML UNIT 5 UNIT SC ×3 (08:15→17:03)
[2025-01-10] MEDS: PANTOPRAZOLE 40 MG TABLET PO (08:16)
[2025-01-10] MEDS: INSULIN LISPRO (AdmeLOG) 1 UNIT/0.01 ML UNIT SC ×3 (12:01→21:56)
--- NOTE | 2025-01-10 18:28 | PD.RESPRO ---
Documentation for date of: 01/10/25 Subjective Subjective Interval history: No acute overnight events reported. Patient seen and examined at bedside this morning. Patient's daughter is at bedside who helped translate in Somali. Patient is tolerating oral diet. Denies any nausea vomiting however patient is still complains of abdominal pain. Per surgery recommendation patient has continued warm compresses however despite that patient continues to have abdominal pain. Order IR drainage of the hematoma. Patient denies any fever or chills. Vitals are stable labs are reviewed and electrolytes are repleted. Since blood cultures were negative Banken Zosyn was discontinued yesterday. Will start the patient on ceftriaxone and Flagyl. Exam Vital Signs Temp Pulse Resp BP Pulse Ox O2 Del Method 97.1 F 88 20 94/64 97 Room Air 01/10/25 16:00 01/10/25 16:00 01/10/25 16:00 01/10/25 16:00 01/10/25 16:00 01/10/25 16:00 Narrative Exam GENERAL: A&Ox3 . Awake, Middle aged petite female, cooperative, Not in acute distress. NEURO: no focal neurological deficits HEENT: Atraumatic, Normocephalic. mucous membranes moist. Eyes open, symmetrical, & clear HEART: Normal Heart Sounds LUNGS: Clear to auscultation with no wheezing or crackles. ABDOMEN: soft, non-distended, lower abdominal soft tissue swelling, erythematous, tender to palpation, nonfluctuant, no punctum seen. SKIN: No Rash or ecchymoses EXTREMITIES: No edema, tenderness, able to move all 4 extremities, pedal pulses palpated Objective Labs 01/11/25 04:28 01/11/25 04:28 Labs: Laboratory Results - last 24 hr 01/10/25 05:29 WBC 10.6 RBC 4.25 Hgb 12.8 Hct 35.9 L MCV 85 MCH 30.1 MCHC 35.7 RDW Std Deviation 37.0 Plt Count 291 Neut % (Auto) 80 Lymph % (Auto) 11 [place] % (Auto) 7 Eos % (Auto) 0 Baso % (Auto) 0 Neut # (Auto) 8.5 H Lymph # (Auto) 1.2 [place] # (Auto) 0.8 Eos # (Auto) 0.0 Baso # (Auto) 0.0 Immature Gran # (Auto) 0.05 H Absolute Nucleated RBC 0.00 Immature Gran % 1 H Nucleated RBC % 0 Sodium 137 Potassium 3.1 L D Chloride 98 Carbon Dioxide 31.8 H Anion Gap 7 BUN < 5 L Creatinine 0.4 L Estim Creat Clear Calc 116.2 eGFR > 60 BUN/Creatinine Ratio 13 Glucose 133 H Calculated Osmolality 273 L Calcium 8.4 Corrected Calcium 9.1 Phosphorus 3.3 Magnesium 2.1 Albumin 3.1 L ABG Interpretation ABG results: 01/07/25 18:28 ABG pH 7.17 L* ABG pCO2 14 L* ABG pO2 122 H ABG HCO3 5 L* ABG O2 Saturation 97 ABG Base Excess -21 L Quality Measures Quality Measures none Assessment & Plan Assessment Current Active Medications: Generic Name Dose Route Start Last Admin Trade Name Freq PRN Reason Stop Dose Admin Acetaminophen 650 mg 01/09/25 11:48 01/10/25 14:35 Acetaminophen 325 Mg Tablet PO 02/08/25 07:43 650 mg Q6HR PRN Administration Pain 1-3 or Temp >99.9 Dextrose 50 ml 01/08/25 15:27 Dextrose 50%-Water Inj 50 Ml Syringe IV 02/07/25 15:26 Q15MIN PRN BG <50 OR BG <70 & pt unresponsive Glucagon 1 mg 01/08/25 15:27 Glucagon Inj 1 Mg Vial IM Q15MIN PRN BG <70, and no IV access Hydromorphone HCl 0.5 mg 01/08/25 14:21 01/09/25 06:12 Hydromorphone Inj 2 Mg/Ml Vial IVP 01/13/25 14:20 0.5 mg Q4HR PRN Administration PAIN SCALE 7-10 (Severe Insulin Glargine 25 unit 01/09/25 21:00 01/09/25 21:15 Insulin Glargine (Lantus) 5 Unit/0.05 Ml (Per 5 Units) SC 02/08/25 20:59 25 unit HS TATIANA Administration Insulin Human Lispro 5 unit 01/08/25 17:30 01/10/25 17:03 Insulin Lispro (Admelog) 1 Unit/0.01 Ml Unit SC 02/07/25 17:29 5 unit TIDWM TATIANA Administration Insulin Human Lispro 0 unit 01/08/25 17:00 01/10/25 17:04 Insulin Lispro (Admelog) 1 Unit/0.01 Ml Unit SC 02/07/25 16:59 1 unit ACHS TATIANA Administration Protocol Magnesium Hydroxide 30 ml 01/07/25 20:06 Milk Of Magnesia Susp 30 Ml Udc PO 02/06/25 20:05 QDAY PRN CONSTIPATION Metoclopramide HCl 10 mg 01/09/25 09:15 01/10/25 14:28 Metoclopramide Inj 5 Mg/Ml Vial 2 Ml IVP 02/08/25 09:14 10 mg Q8HR TATIANA Administration Protocol Pantoprazole Sodium 40 mg 01/08/25 09:00 01/10/25 08:16 Pantoprazole 40 Mg Tablet PO 02/07/25 08:59 40 mg QDAY TATIANA Administration Plan Ms. Horne is a 49-year-old female with past medical history of insulin-dependent diabetes mellitus who presented to [facility] for intermittent nausea nonbloody emesis and abdominal pain. Patient was admitted to the intensive care unit due to underlying diabetic ketoacidosis. Patient downgraded to telemetry after anion gap closed x 2 and was transitioned to subcutaneous insulin. #Abdominal wall hematoma CT abdomen/pelvis showed 9.7 x 4.5 x 8.3 cm). Differentials include abscess versus hematoma. General Surgeon, Dr. Coyle assessed patient and says most likely soft tissue swelling is hematoma. Recommended warm compresses Plan: - Pt is started on Rocephin and Flagyl 01/10- - Zosyn and vancomycin 01/07?01/09 - Acetaminophen as needed for pain. Dilaudid 0.5 Mg IV every 4 hourly as needed for severe pain - Blood culture no growth at 48 hrs - Hold DVT prophylaxis or any anticoagulation due to hematoma - IR drainage of the hematoma ordered for 01/11 #Insulin-dependent diabetes mellitus type 2, Uncontrolled #Diabetic ketoacidosis?resolved [HbA1c >14%] On admission: Patient likely noncompliant, on admission pH 7.17, pCO2 14, bicarb 13.3, beta hydroxybutyrate 5.6, glucose 350, hemoglobin A1c more than 14 - Insulin glargine 25 units at bedtime - Insulin lispro 5 units subcutaneous 3 times daily - Sliding scale insulin - Hypoglycemia protocol - Will need close outpatient follow-up for optimization - On scheduled Reglan due to suspicion of diabetic gastroparesis Health Maintenance DVT prophylaxis: SCDs GI prophylaxis: Not Indicated Diet: Carb consistent low Lines: Peripheral IV Code status: Full code Assessment and plan discussed with my attending physician Dr. Emperatriz Monte (PGY-1)- Internal medicine resident Attending Provider Attestation/Addendum I have discussed and was present for the essential components of the history, physical examination, diagnosis, and treatment plan with the resident. I agree with the patient's care as documented by the resident and amended herein by me. Lee Awan DO. Although this document has been carefully reviewed, there may still be some phonetic and other typographical errors. These errors are purely grammatical due to imperfections in the software program and should not be construed in any way to compromise the substance of the patient's medical care during this visit.
[2025-01-10] MEDS: cefTRIAXone/D5w 1gm IV premix 1 GM/50 ML BAG IV (21:28)
[2025-01-10] MEDS: metroNIDAZOLE/NS 500 MG IVPB 500 MG/100 ML BAG 200 MG IV (21:28)
[2025-01-10] MEDS: INSULIN GLARGINE (Lantus) 5 UNIT/0.05 ML (PER 5 UNITS) 25 UNIT SC (21:56)
[2025-01-11] VITALS (12 sets, daily range): BP systolic 94–145; BP diastolic 50–74; PULSE 70–93; RESP 14–96; TEMP 36.2–36.8; O2SAT 95–100
--- NOTE | 2025-01-11 01:32 | PC.NURSE ---
patient pending IR abccess drainage tomorrow, no time indicated, per Dr. Pathak to have patient NPO now.
[2025-01-11 05:42] LABS: Basophils % (Auto) 0 % (0-2.5); Eosinophils # (Auto) 0.1 Thou/mm3 (0.0-0.5); Eosinophils % (Auto) 1 % (0-10); Hematocrit 37.1 % (36.0-46.0); Hemoglobin 12.9 g/dL (12.0-16.0); Immature Granulocytes % (Auto) 1 % (0-0); Immature Granulocytes Auto 0.05 Thou/mm3 (0.00-0.00); Lymphocytes # (Auto) 1.6 Thou/mm3 (1.0-4.8); Lymphocytes % (Auto) 17 % (10-50); Mean Corpuscular HGB Conc 34.8 g/dl (31.0-37.0); Mean Corpuscular Hemoglobin 29.7 pg (25.0-35.0); Mean Corpuscular Volume 86 fL (80-100); Monocytes # (Auto) 0.9 Thou/mm3 (0.0-0.8); Monocytes % (Auto) 9 % (0-12); Neutrophils # (Auto) 7.2 Thou/mm3 (1.8-7.7); Neutrophils % (Auto) 73 % (37-80); Nucleated Red Blood Cell % 0 /100 WBC (0); Platelet Count 313 Thou/mm3 (140-440); RDW Standard Deviation 37.9 fL (36.4-46.3); Red Blood Count 4.34 Miln/mm3 (4.00-5.20); White Blood Count 9.8 Thou/mm3 (3.6-11.0)
[2025-01-11] MEDS: metroNIDAZOLE/NS 500 MG IVPB 500 MG/100 ML BAG 200 MG IV ×3 (05:54→21:30)
[2025-01-11] MEDS: METOCLOPRAMIDE INJ 5 MG/ML VIAL 2 ML 10 MG IVP ×2 (05:54→21:30)
[2025-01-11 06:03] LABS: Albumin, Serum 3.2 gm/dL (3.5-5.0); Anion Gap 8 (7-16); BUN/Creatinine Ratio 18 Ratio (12-20); Blood Urea Nitrogen 9 mg/dL (9-23); Calcium 8.7 mg/dL (8.3-10.6); Calcium (Corrected) 9.3 mg/dL (8.5-10.1); Carbon Dioxide 31.7 mMol/L (20.0-31.0); Chloride 98 mMol/L (98-107); Creatinine (Component) 0.5 mg/dL (0.6-1.3); Glucose 256 mg/dL (74-106); Magnesium 2.2 mg/dL (1.6-2.6); Osmolality,Calculated 283 (275-295); Phosphorous 4.1 mg/dL (2.4-5.1); Potassium 3.4 mMol/L (3.4-5.1); Sodium 138 mMol/L (136-145); eGFR > 60 See Note
[2025-01-11] MEDS: INSULIN LISPRO (AdmeLOG) 1 UNIT/0.01 ML UNIT SC ×2 (06:56→21:42)
[2025-01-11] MEDS: cefTRIAXone/D5w 1gm IV premix 1 GM/50 ML BAG IV (08:15)
--- NOTE | 2025-01-11 08:52 | PC.SS ---
Follow up note: Has abdominal fluid collection. Will get IR drainage procedure.
--- NOTE | 2025-01-11 09:11 | XR_ITS ---
Examination: CT-guided percutaneous placement abscess drainage catheter anterior abdomen CT abdomen without intravenous contrast Date and time of procedure: January 11, 2025 1458 hours INDICATIONS: CT abdomen pelvis January 07, 2025 anterior abdominal wall subcutaneous mass 9.7 x 4.5 x 8.3 cm, abscess Informed consent provided. A timeout was completed verifying correct patient, procedure, site and positioning. Technique: Axial 3 mm sections were obtained for localization of the anterior abdominal wall abscess Appropriate area is marked. The patient's site was prepped and draped in sterile fashion Maximal sterile barrier technique utilized, including hand hygiene Local anesthesia was obtained with 1% lidocaine. Low dose protocols were performed. One or more of the following dose reduction techniques were used; automated exposure control, adjustment of the mA and/or KV according to patient size, use of iterative reconstruction technique. Utilizing CT fluoroscopic guidance 5 Khmer catheter placed in the abscess collection 0.35 wire guide is introduced through the catheter followed by dilator is in a 6 Khmer pigtail abscess drainage catheter Patient appears in stable condition during this procedure. At completion of the procedure, the patient is in satisfactory condition. Estimated blood loss 2 cc Complete pathology report to follow. Impression: Successful CT-guided percutaneous placement anterior abdomen abscess drainage catheter, 50 cc grossly purulent material removed and sent to the laboratory for culture and sensitivity
[2025-01-11 09:16] LABS: HCG,Qualitative Serum Negative
[2025-01-11 09:17] LABS: Partial Thromboplastin Time 29.9 Seconds (22.0-36.0); Prothrombin Time 10.9 Seconds (9.0-12.2)
--- NOTE | 2025-01-11 10:15 | PC.NURSE ---
New order for potassium received made md landers aware of pts current npo status/not given at this time.
--- NOTE | 2025-01-11 14:43 | PC.CC ---
Notified by DEIS Torres, patient will require Freestyle Herminia 3 Plus Sensors + Readers. Per Dr. Monte, tentative plan is for Lantus + insulin lispro. ELIZABETH approved for Herminia components from 01/11/25-01/11/26.
[2025-01-11] MEDS: fentaNYL CIT INJ 50 mCg/ML AMP 2ML IVP (15:12)
[2025-01-11] MEDS: LIDOCAINE INJ PF 1% 30 ML VIAL 5 ML INFL (15:18)
[2025-01-11] MEDS: INSULIN LISPRO (AdmeLOG) 1 UNIT/0.01 ML UNIT 5 UNIT SC (17:02)
--- NOTE | 2025-01-11 17:32 | ESPR_ITS ---
Documentation for date of: 01/11/25 Subjective Subjective Interval history: No acute overnight events reported. Patient seen and examined at bedside this morning. Patient had the abdominal abscess drained and 50 cc of purulent material removed and an accordion drain was placed. Patient is seen again after her procedure and states that she feels much better she still continues to have some tenderness however much better than prior to the drainage. Vitals are stable and labs are reviewed. Blood glucose is 256 we will continue to monitor. Abdominal abscess is sent for culture. Will continue IV antibiotics with ceftriaxone and vancomycin. Patient has no other complaints. Exam Vital Signs Temp Pulse Resp BP Pulse Ox O2 Del Method O2 Flow Rate 97.1 F 70 18 145/74 H 95 Room Air 3 01/11/25 16:00 01/11/25 16:00 01/11/25 16:00 01/11/25 16:00 01/11/25 16:00 01/11/25 16:00 01/11/25 15:30 Narrative Exam GENERAL: A&Ox3 . Awake, Middle aged petite female, cooperative, Not in acute distress. NEURO: no focal neurological deficits HEENT: Atraumatic, Normocephalic. mucous membranes moist. Eyes open, symmetrical, & clear HEART: Normal Heart Sounds LUNGS: Clear to auscultation with no wheezing or crackles. ABDOMEN: soft, non-distended, lower abdominal soft tissue swelling still present with accordion drain, erythematous, tender to palpation SKIN: No Rash or ecchymoses EXTREMITIES: No edema, tenderness, able to move all 4 extremities, pedal pulses palpated Objective Labs 01/11/25 04:28 01/11/25 04:28 Labs: Laboratory Results - last 24 hr 01/11/25 04:28 WBC 9.8 RBC 4.34 Hgb 12.9 Hct 37.1 MCV 86 MCH 29.7 MCHC 34.8 RDW Std Deviation 37.9 Plt Count 313 Neut % (Auto) 73 Lymph % (Auto) 17 [place] % (Auto) 9 Eos % (Auto) 1 Baso % (Auto) 0 Neut # (Auto) 7.2 Lymph # (Auto) 1.6 [place] # (Auto) 0.9 H Eos # (Auto) 0.1 Baso # (Auto) 0.0 Immature Gran # (Auto) 0.05 H Absolute Nucleated RBC 0.00 Immature Gran % 1 H Nucleated RBC % 0 PT 10.9 INR 1.0 APTT 29.9 Sodium 138 Potassium 3.4 Chloride 98 Carbon Dioxide 31.7 H Anion Gap 8 BUN 9 Creatinine 0.5 L Estim Creat Clear Calc 93.0 eGFR > 60 BUN/Creatinine Ratio 18 Glucose 256 H D Calculated Osmolality 283 Calcium 8.7 Corrected Calcium 9.3 Phosphorus 4.1 Magnesium 2.2 Albumin 3.2 L HCG, Qual Negative ABG Interpretation ABG results: 01/07/25 18:28 ABG pH 7.17 L* ABG pCO2 14 L* ABG pO2 122 H ABG HCO3 5 L* ABG O2 Saturation 97 ABG Base Excess -21 L Quality Measures Quality Measures none Assessment & Plan Assessment Current Active Medications: Generic Name Dose Route Start Last Admin Trade Name Freq PRN Reason Stop Dose Admin Acetaminophen 650 mg 01/09/25 11:48 01/10/25 20:21 Acetaminophen 325 Mg Tablet PO 02/08/25 07:43 650 mg Q6HR PRN Administration Pain 1-3 or Temp >99.9 Dextrose 50 ml 01/08/25 15:27 Dextrose 50%-Water Inj 50 Ml Syringe IV 02/07/25 15:26 Q15MIN PRN BG <50 OR BG <70 & pt unresponsive Glucagon 1 mg 01/08/25 15:27 Glucagon Inj 1 Mg Vial IM Q15MIN PRN BG <70, and no IV access Hydromorphone HCl 0.5 mg 01/08/25 14:21 01/09/25 06:12 Hydromorphone Inj 2 Mg/Ml Vial IVP 01/13/25 14:20 0.5 mg Q4HR PRN Administration PAIN SCALE 7-10 (Severe Ceftriaxone Sodium/Dextrose 1 gm in 50 mls @ 100 mls/hr 01/10/25 19:16 01/11/25 08:15 Rocephin/D5w 1gm Iv Premix IV 01/17/25 19:15 100 mls/hr QDAY TATIANA Administration Metronidazole 500 mg in 100 mls @ 200 mls/hr 01/10/25 19:16 01/11/25 17:02 Flagyl 500 Mg Iv IV 01/17/25 19:15 200 mls/hr Q8HR TATIANA Administration Vancomycin/Sodium Chloride 100 mls @ 120 mls/hr 01/11/25 17:15 Vancomycin/Ns 500 Mg Ivpb IV 01/18/25 17:14 Q12HR TATIANA Insulin Glargine 25 unit 01/09/25 21:00 01/10/25 21:56 Insulin Glargine (Lantus) 5 Unit/0.05 Ml (Per 5 Units) SC 02/08/25 20:59 25 unit HS TATIANA Administration Insulin Human Lispro 5 unit 01/08/25 17:30 01/11/25 17:02 Insulin Lispro (Admelog) 1 Unit/0.01 Ml Unit SC 02/07/25 17:29 5 unit TIDWM TATIANA Administration Insulin Human Lispro 0 unit 01/11/25 09:16 01/11/25 17:01 Insulin Lispro (Admelog) 1 Unit/0.01 Ml Unit SC 02/10/25 05:59 Not Given Q6HR [facility] Protocol Magnesium Hydroxide 30 ml 01/07/25 20:06 Milk Of Magnesia Susp 30 Ml Udc PO 02/06/25 20:05 QDAY PRN CONSTIPATION Metoclopramide HCl 10 mg 01/09/25 09:15 01/11/25 16:43 Metoclopramide Inj 5 Mg/Ml Vial 2 Ml IVP 02/08/25 09:14 Not Given Q8HR [facility] Protocol Pantoprazole Sodium 40 mg 01/08/25 09:00 01/11/25 07:32 Pantoprazole 40 Mg Tablet PO 02/07/25 08:59 Not Given QDAY [facility] Pharmacy Consult 1 each 01/11/25 17:00 Vancomycin Pharmacy To Dose 1 Each Each IV 02/10/25 16:59 QDAY PRN CONSULT Plan Ms. Horne is a 49-year-old female with past medical history of insulin- dependent diabetes mellitus who presented to [facility] for intermittent nausea nonbloody emesis and abdominal pain. Patient was admitted to the intensive care unit due to underlying diabetic ketoacidosis. Patient downgraded to telemetry after anion gap closed x 2 and was transitioned to subcutaneous insulin. #Abdominal wall Abscess s/p drainage CT abdomen/pelvis showed 9.7 x 4.5 x 8.3 cm). Differentials include abscess versus hematoma. General Surgeon, Dr. Coyle assessed patient and says most likely soft tissue swelling is hematoma. Recommended warm compresses Patient had the abdominal abscess drained and 50 cc of purulent material removed and an accordion drain was placed on 01/11 Plan: - Pt is started on Rocephin and Flagyl 01/10- - Zosyn and vancomycin 01/07?01/09 - Acetaminophen as needed for pain. Dilaudid 0.5 Mg IV every 4 hourly as needed for severe pain - Blood culture no growth at 48 hrs -Abscess culture pending #Insulin-dependent diabetes mellitus type 2, Uncontrolled #Diabetic ketoacidosis?resolved [HbA1c >14%] On admission: Patient likely noncompliant, on admission pH 7.17, pCO2 14, bicarb 13.3, beta hydroxybutyrate 5.6, glucose 350, hemoglobin A1c more than 14 - Insulin glargine 25 units at bedtime - Insulin lispro 5 units subcutaneous 3 times daily - Sliding scale insulin - Hypoglycemia protocol - Will need close outpatient follow-up for optimization - On scheduled Reglan due to suspicion of diabetic gastroparesis Health Maintenance DVT prophylaxis: SCDs GI prophylaxis: Not Indicated Diet: Carb consistent low Lines: Peripheral IV Code status: Full code Assessment and plan discussed with my attending physician Dr. Emperatriz Monte (PGY-1)- Internal medicine resident Attending Provider Attestation/Addendum I have discussed and was present for the essential components of the history, physical examination, diagnosis, and treatment plan with the resident. I agree with the patient's care as documented by the resident and amended herein by me. Lee Awan DO. Patient seen and evaluated this AM. Vital signs stable, no acute events overnight. Labs much unremarkable, potassium slightly low at 3.4. Blood and urine cultures negative, the patient did have a CT-guided abscess drainage which resulted in 50 cc of purulent material removed which was sent to pathology. A drain was placed. Culture results pending, patient will continue ceftriaxone, Flagyl and we did add vancomycin until cultures result. General surgery consulted, appreciate recommendations Although this document has been carefully reviewed, there may still be some phonetic and other typographical errors. These errors are purely grammatical due to imperfections in the software program and should not be construed in any way to compromise the substance of the patient's medical care during this visit.
--- NOTE | 2025-01-11 17:32 | PC.NURSE ---
1532 patient post drainage catheter placement to left lower abdomen, no active bleeding noted, patient transferred back to room 352, bedside report given to Trina ZHONG
[2025-01-11] MEDS: VANCOMYCIN/NS 500 MG IVPB 100 ML 120 MG IV (18:08)
[2025-01-11] MEDS: INSULIN GLARGINE (Lantus) 5 UNIT/0.05 ML (PER 5 UNITS) 25 UNIT SC (21:42)
[2025-01-11] MEDS: ACETAMINOPHEN 325 MG TABLET 650 MG PO (21:47)
[2025-01-12] VITALS (8 sets, daily range): BP systolic 93–121; BP diastolic 59–78; PULSE 68–92; RESP 16–21; TEMP 36.2–36.6; O2SAT 96–98
[2025-01-12] MEDS: ACETAMINOPHEN 325 MG TABLET 650 MG PO ×2 (05:05→11:45)
[2025-01-12] MEDS: METOCLOPRAMIDE INJ 5 MG/ML VIAL 2 ML 10 MG IVP ×3 (05:05→21:48)
[2025-01-12] MEDS: metroNIDAZOLE/NS 500 MG IVPB 500 MG/100 ML BAG 200 MG IV ×3 (05:05→21:50)
[2025-01-12 06:36] LABS: Basophils % (Auto) 0 % (0-2.5); Eosinophils # (Auto) 0.1 Thou/mm3 (0.0-0.5); Eosinophils % (Auto) 2 % (0-10); Hematocrit 36.7 % (36.0-46.0); Hemoglobin 12.7 g/dL (12.0-16.0); Immature Granulocytes % (Auto) 0 % (0-0); Immature Granulocytes Auto 0.03 Thou/mm3 (0.00-0.00); Lymphocytes # (Auto) 1.5 Thou/mm3 (1.0-4.8); Lymphocytes % (Auto) 19 % (10-50); Mean Corpuscular HGB Conc 34.6 g/dl (31.0-37.0); Mean Corpuscular Hemoglobin 29.8 pg (25.0-35.0); Mean Corpuscular Volume 86 fL (80-100); Monocytes # (Auto) 0.7 Thou/mm3 (0.0-0.8); Monocytes % (Auto) 9 % (0-12); Neutrophils # (Auto) 5.4 Thou/mm3 (1.8-7.7); Neutrophils % (Auto) 70 % (37-80); Nucleated Red Blood Cell % 0 /100 WBC (0); Platelet Count 321 Thou/mm3 (140-440); RDW Standard Deviation 38.9 fL (36.4-46.3); Red Blood Count 4.26 Miln/mm3 (4.00-5.20); White Blood Count 7.8 Thou/mm3 (3.6-11.0)
[2025-01-12 06:59] LABS: Albumin, Serum 3.4 gm/dL (3.5-5.0); Anion Gap 9 (7-16); BUN/Creatinine Ratio 18 Ratio (12-20); Blood Urea Nitrogen 9 mg/dL (9-23); Calcium 8.8 mg/dL (8.3-10.6); Calcium (Corrected) 9.3 mg/dL (8.5-10.1); Carbon Dioxide 28.7 mMol/L (20.0-31.0); Chloride 102 mMol/L (98-107); Creatinine (Component) 0.5 mg/dL (0.6-1.3); Glucose 122 mg/dL (74-106); Magnesium 2.2 mg/dL (1.6-2.6); Osmolality,Calculated 279 (275-295); Phosphorous 4.5 mg/dL (2.4-5.1); Potassium 3.5 mMol/L (3.4-5.1); Sodium 140 mMol/L (136-145); eGFR > 60 See Note
[2025-01-12] MEDS: INSULIN LISPRO (AdmeLOG) 1 UNIT/0.01 ML UNIT 5 UNIT SC ×3 (07:37→16:49)
[2025-01-12] MEDS: cefTRIAXone/D5w 1gm IV premix 1 GM/50 ML BAG IV (09:20)
[2025-01-12] MEDS: POTASSIUM CHLORIDE 20 mEq TABCR 40 MEQ PO (09:20)
[2025-01-12] MEDS: PANTOPRAZOLE 40 MG TABLET PO (09:21)
[2025-01-12] MEDS: VANCOMYCIN/NS 750 MG IVPB 750 MG/150 ML BAG 120 MG IV ×2 (10:33→22:24)
[2025-01-12] MEDS: INSULIN LISPRO (AdmeLOG) 1 UNIT/0.01 ML UNIT SC (11:45)
--- NOTE | 2025-01-12 12:10 | ESPR_ITS ---
Documentation for date of: 01/12/25 Subjective Subjective Interval history: No acute overnight events reported. Patient seen and examined at bedside this morning. Patient may be discharged home on Augmentin tomorrow. Vitals are stable, patient saturating on room air, remained afebrile overnight, labs are reviewed and unremarkable. Electrolytes are repleted. Patient continues to complain of abdominal tenderness. Denies any fevers or chills. Patient has an accordion drain placed in the lower abdomen which has no output overnight or this morning. Per surgery recommendation we will repeat imaging and then determine if patient needs to be discharged with drain tomorrow . Will need to follow-up with surgery outpatient to get the drain removed and continue antibiotics. Patient may be discharged home on Augmentin tomorrow. Exam Vital Signs Temp Pulse Resp BP Pulse Ox O2 Del Method O2 Flow Rate 97.5 F 79 16 108/78 98 Room Air 3 01/12/25 07:53 01/12/25 07:53 01/12/25 07:53 01/12/25 07:53 01/12/25 07:53 01/12/25 07:53 01/11/25 15:30 Objective Labs 01/12/25 05:05 01/12/25 05:05 Labs: Laboratory Results - last 24 hr 01/12/25 05:05 WBC 7.8 RBC 4.26 Hgb 12.7 Hct 36.7 MCV 86 MCH 29.8 MCHC 34.6 RDW Std Deviation 38.9 Plt Count 321 Neut % (Auto) 70 Lymph % (Auto) 19 [place] % (Auto) 9 Eos % (Auto) 2 Baso % (Auto) 0 Neut # (Auto) 5.4 Lymph # (Auto) 1.5 [place] # (Auto) 0.7 Eos # (Auto) 0.1 Baso # (Auto) 0.0 Immature Gran # (Auto) 0.03 H Absolute Nucleated RBC 0.00 Immature Gran % 0 Nucleated RBC % 0 Sodium 140 Potassium 3.5 Chloride 102 Carbon Dioxide 28.7 Anion Gap 9 BUN 9 Creatinine 0.5 L Estim Creat Clear Calc 93.0 eGFR > 60 BUN/Creatinine Ratio 18 Glucose 122 H D Calculated Osmolality 279 Calcium 8.8 Corrected Calcium 9.3 Phosphorus 4.5 Magnesium 2.2 Albumin 3.4 L ABG Interpretation ABG results: 01/07/25 18:28 ABG pH 7.17 L* ABG pCO2 14 L* ABG pO2 122 H ABG HCO3 5 L* ABG O2 Saturation 97 ABG Base Excess -21 L Quality Measures Quality Measures none Assessment & Plan Assessment Current Active Medications: Generic Name Dose Route Start Last Admin Trade Name Freq PRN Reason Stop Dose Admin Acetaminophen 650 mg 01/09/25 11:48 01/12/25 11:45 Acetaminophen 325 Mg Tablet PO 02/08/25 07:43 650 mg Q6HR PRN Administration Pain 1-3 or Temp >99.9 Dextrose 50 ml 01/08/25 15:27 Dextrose 50%-Water Inj 50 Ml Syringe IV 02/07/25 15:26 Q15MIN PRN BG <50 OR BG <70 & pt unresponsive Glucagon 1 mg 01/08/25 15:27 Glucagon Inj 1 Mg Vial IM Q15MIN PRN BG <70, and no IV access Hydromorphone HCl 0.5 mg 01/08/25 14:21 01/09/25 06:12 Hydromorphone Inj 2 Mg/Ml Vial IVP 01/13/25 14:20 0.5 mg Q4HR PRN Administration PAIN SCALE 7-10 (Severe Ceftriaxone Sodium/Dextrose 1 gm in 50 mls @ 100 mls/hr 01/10/25 19:16 01/12/25 09:20 Rocephin/D5w 1gm Iv Premix IV 01/17/25 19:15 100 mls/hr QDAY TATIANA Administration Metronidazole 500 mg in 100 mls @ 200 mls/hr 01/10/25 19:16 01/12/25 05:05 Flagyl 500 Mg Iv IV 01/17/25 19:15 200 mls/hr Q8HR TATIANA Administration Vancomycin/Sodium Chloride 750 mg in 150 mls @ 120 mls/hr 01/12/25 10:00 01/12/25 10:33 Vancomycin/Ns 750 Mg Ivpb IV 01/19/25 09:59 120 mls/hr Q12HR@1000,2200 TATIANA Administration Insulin Glargine 25 unit 01/09/25 21:00 01/11/25 21:42 Insulin Glargine (Lantus) 5 Unit/0.05 Ml (Per 5 Units) SC 02/08/25 20:59 25 unit HS TATIANA Administration Insulin Human Lispro 5 unit 01/08/25 17:30 01/12/25 11:45 Insulin Lispro (Admelog) 1 Unit/0.01 Ml Unit SC 02/07/25 17:29 5 unit TIDWM TATIANA Administration Insulin Human Lispro 0 unit 01/11/25 21:00 01/12/25 11:45 Insulin Lispro (Admelog) 1 Unit/0.01 Ml Unit SC 02/10/25 20:59 2 unit ACHS TATIANA Administration Protocol Magnesium Hydroxide 30 ml 01/07/25 20:06 Milk Of Magnesia Susp 30 Ml Udc PO 02/06/25 20:05 QDAY PRN CONSTIPATION Metoclopramide HCl 10 mg 01/09/25 09:15 01/12/25 05:05 Metoclopramide Inj 5 Mg/Ml Vial 2 Ml IVP 02/08/25 09:14 10 mg Q8HR TATIANA Administration Protocol Pantoprazole Sodium 40 mg 01/08/25 09:00 01/12/25 09:21 Pantoprazole 40 Mg Tablet PO 02/07/25 08:59 40 mg QDAY TATIANA Administration Pharmacy Consult 1 each 01/11/25 17:00 Vancomycin Pharmacy To Dose 1 Each Each IV 02/10/25 16:59 QDAY PRN CONSULT Plan Ms. Horne is a 49-year-old female with past medical history of insulin- dependent diabetes mellitus who presented to [facility] for intermittent nausea nonbloody emesis and abdominal pain. Patient was admitted to the intensive care unit due to underlying diabetic ketoacidosis. Patient downgraded to telemetry after anion gap closed x 2 and was transitioned to subcutaneous insulin. #Abdominal wall Abscess s/p drainage CT abdomen/pelvis showed 9.7 x 4.5 x 8.3 cm). Differentials include abscess versus hematoma. General Surgeon, Dr. Coyle assessed patient and says most likely soft tissue swelling is hematoma. Recommended warm compresses Patient had the abdominal abscess drained and 50 cc of purulent material removed and an accordion drain was placed on 01/11 Plan: - Pt is started on Rocephin and Flagyl 01/10- -Vancomycin 01/09- -Zosyn 01/07?01/09 - Acetaminophen as needed for pain. Dilaudid 0.5 Mg IV every 4 hourly as needed for severe pain -Blood culture no growth at 48 hrs -Abscess culture pending -repeat abdominal US pending #Insulin-dependent diabetes mellitus type 2, Uncontrolled #Diabetic ketoacidosis?resolved [HbA1c >14%] On admission: Patient likely noncompliant, on admission pH 7.17, pCO2 14, bicarb 13.3, beta hydroxybutyrate 5.6, glucose 350, hemoglobin A1c more than 14 - Insulin glargine 25 units at bedtime - Insulin lispro 5 units subcutaneous 3 times daily - Sliding scale insulin - Hypoglycemia protocol - Will need close outpatient follow-up for optimization - On scheduled Reglan due to suspicion of diabetic gastroparesis Health Maintenance DVT prophylaxis: SCDs GI prophylaxis: Not Indicated Diet: Carb consistent low Lines: Peripheral IV Code status: Full code Assessment and plan discussed with my attending physician Dr. Emperatriz Monte (PGY-1)- Internal medicine resident Attending Provider Attestation/Addendum I have discussed and was present for the essential components of the history, physical examination, diagnosis, and treatment plan with the resident. I agree with the patient's care as documented by the resident and amended herein by me. Lee Awan, DO. Patient seen and evaluated this AM. No acute events overnight, vital signs stable, patient afebrile. Labs largely unremarkable in total. Blood glucose has been well-controlled. Patient did have an IR drainage of her abdominal mass yesterday which was successful, draining approximately 50 cc of grossly purulent material, a pigtail drainage catheter was also placed with no output this morning noted. Cultures of the material are pending however Gram stain demonstrating 2+ gram-positive cocci. Will get an ultrasound of the lesion today, if still there we will hold the patient however if it is reduced, we may be able to send the patient home with a drain in place, she can follow-up with general surgeon Dr. Coyle in the outpatient setting to have the drain removed and for further evaluation. For now we will keep the patient on ceftriaxone and Flagyl and continue to monitor closely. Although this document has been carefully reviewed, there may still be some phonetic and other typographical errors. These errors are purely grammatical due to imperfections in the software program and should not be construed in any way to compromise the substance of the patient's medical care during this visit.
--- NOTE | 2025-01-12 12:46 | XR_ITS ---
Examination: Abdomen sonogram, Limited Date and time of exam: January 12, 2025, 1524 hrs. Indications: Ultrasound soft tissue abdomen, history status post catheter drainage abscess anterior abdomen January 11, 2025 Technique: Real-time oropeza scale transabdominal sonographic images of the upper abdomen obtained. Findings: Abscess in the soft tissue at the area concern 10.2 x 3.6 x 11.4 cm Impression: Abscess in the soft tissue lower anterior abdomen as above
[2025-01-12] MEDS: HYDROmorphone INJ 2 MG/ML VIAL 0.5 MG IVP (20:11)
[2025-01-12] MEDS: INSULIN GLARGINE (Lantus) 5 UNIT/0.05 ML (PER 5 UNITS) 25 UNIT SC (20:34)
[2025-01-13] VITALS (10 sets, daily range): BP systolic 93–107; BP diastolic 62–77; PULSE 68–84; RESP 17; TEMP 36.1–36.6; O2SAT 95–97; BMI 26.8
[2025-01-13] MEDS: HYDROmorphone INJ 2 MG/ML VIAL 0.5 MG IVP ×2 (03:28→07:54)
[2025-01-13] MEDS: METOCLOPRAMIDE INJ 5 MG/ML VIAL 2 ML 10 MG IVP ×3 (05:06→21:30)
[2025-01-13] MEDS: metroNIDAZOLE/NS 500 MG IVPB 500 MG/100 ML BAG 200 MG IV ×3 (05:10→21:33)
[2025-01-13 06:29] LABS: Basophils % (Auto) 1 % (0-2.5); Eosinophils # (Auto) 0.2 Thou/mm3 (0.0-0.5); Eosinophils % (Auto) 3 % (0-10); Hematocrit 36.7 % (36.0-46.0); Hemoglobin 12.4 g/dL (12.0-16.0); Immature Granulocytes % (Auto) 1 % (0-0); Immature Granulocytes Auto 0.04 Thou/mm3 (0.00-0.00); Lymphocytes # (Auto) 1.6 Thou/mm3 (1.0-4.8); Lymphocytes % (Auto) 22 % (10-50); Mean Corpuscular HGB Conc 33.8 g/dl (31.0-37.0); Mean Corpuscular Hemoglobin 29.6 pg (25.0-35.0); Mean Corpuscular Volume 88 fL (80-100); Monocytes # (Auto) 0.9 Thou/mm3 (0.0-0.8); Monocytes % (Auto) 13 % (0-12); Neutrophils # (Auto) 4.5 Thou/mm3 (1.8-7.7); Neutrophils % (Auto) 62 % (37-80); Nucleated Red Blood Cell % 0 /100 WBC (0); Platelet Count 204 Thou/mm3 (140-440); RDW Standard Deviation 39.4 fL (36.4-46.3); Red Blood Count 4.19 Miln/mm3 (4.00-5.20); White Blood Count 7.2 Thou/mm3 (3.6-11.0)
[2025-01-13 07:20] LABS: Alanine Aminotransferase 9 U/L (10-49); Albumin, Serum 3.2 gm/dL (3.5-5.0); Albumin/Globulin Ratio 1.3 (1.2-2.2); Alkaline Phosphatase 86 U/L (46-116); Anion Gap 6 (7-16); Aspartate Amino Transferase 20 U/L (0-34); BUN/Creatinine Ratio 15 Ratio (12-20); Bilirubin,Total 0.3 mg/dL (0.3-1.2); Blood Urea Nitrogen 6 mg/dL (9-23); Calcium 8.8 mg/dL (8.3-10.6); Calcium (Corrected) 9.4 mg/dL (8.5-10.1); Carbon Dioxide 24.8 mMol/L (20.0-31.0); Chloride 106 mMol/L (98-107); Creatinine (Component) 0.4 mg/dL (0.6-1.3); Estimated Creatinine Clearance 116.4 mL/min (>60); Globulin 2.5 gm/dL (2.3-3.5); Glucose 138 mg/dL (74-106); Magnesium 2.1 mg/dL (1.6-2.6); Osmolality,Calculated 273 (275-295); Phosphorous 3.5 mg/dL (2.4-5.1); Potassium 3.9 mMol/L (3.4-5.1); Sodium 137 mMol/L (136-145); Total Protein 5.7 gm/dL (5.7-8.2); eGFR > 60 See Note
[2025-01-13] MEDS: PANTOPRAZOLE 40 MG TABLET PO (09:48)
[2025-01-13] MEDS: cefTRIAXone/D5w 1gm IV premix 1 GM/50 ML BAG IV (09:48)
[2025-01-13 10:12] LABS: Vancomycin,Trough 7.1 mcg/mL (5.0-10.0)
[2025-01-13] MEDS: ONDANSETRON INJ 2 MG/ML INJ 2 ML 4 MG IVP (10:33)
[2025-01-13] MEDS: VANCOMYCIN/NS 1 GM IVPB 200 ML IV ×2 (10:40→22:11)
--- NOTE | 2025-01-13 12:02 | PD.RESPRO ---
Documentation for date of: 01/13/25 Subjective Subjective Interval history: No acute events overnight.?Patient seen and examined at bedside this AM.?Patient continues to have firm mass in the mid-abdomen, similar in size, quite tender to palpation. Drain is checked and has minimal to no output. 01/12/2025 Repeat soft tissue abdominal US showed abscess in the soft tissue at the area of concern 10.2 x 3.6 x 11.[address] Coyle who will come evaluate the patient tomorrow morning. Labs and vitals were reviewed.?The patient has been afebrile and labs have remained stable, no leukocytosis. No further complaints at this time. Review of systems otherwise negative except what is mentioned above. Exam Vital Signs Temp Pulse Resp BP Pulse Ox O2 Del Method O2 Flow Rate 97.8 F 73 17 106/63 97 Room Air 3 01/13/25 11:55 01/13/25 11:55 01/13/25 11:55 01/13/25 11:55 01/13/25 11:55 01/13/25 11:55 01/11/25 15:30 Narrative Exam Physical Exam General: Awake and in no acute distress. Conversational and non-toxic appearing. HEENT: Normocephalic, atraumatic, mucous membranes moist. Heart: Regular rate and rhythm, normal S1 and S2, no murmurs. Lungs: Clear to auscultation with no wheezing or crackles. Abdomen: Soft, nondistended, nontender, positive bowel sounds. ?No guarding or rebound tenderness. Neurologic: Alert and oriented x3, no gross neurological deficit, and patient able to move all 4 extremities. Extremities: No edema. Skin: No rash or ecchymoses. Objective Labs 01/13/25 04:06 01/13/25 04:06 Labs: Laboratory Results - last 24 hr 01/13/25 01/13/25 04:06 09:15 WBC 7.2 RBC 4.19 Hgb 12.4 Hct 36.7 MCV 88 MCH 29.6 MCHC 33.8 RDW Std Deviation 39.4 Plt Count 204 D Neut % (Auto) 62 Lymph % (Auto) 22 Cache % (Auto) 13 H Eos % (Auto) 3 Baso % (Auto) 1 Neut # (Auto) 4.5 Lymph # (Auto) 1.6 Cache # (Auto) 0.9 H Eos # (Auto) 0.2 Baso # (Auto) 0.0 Immature Gran # (Auto) 0.04 H Absolute Nucleated RBC 0.00 Immature Gran % 1 H Nucleated RBC % 0 Sodium 137 Potassium 3.9 Chloride 106 Carbon Dioxide 24.8 Anion Gap 6 L BUN 6 L Creatinine 0.4 L Estim Creat Clear Calc 116.4 eGFR > 60 BUN/Creatinine Ratio 15 Glucose 138 H Calculated Osmolality 273 L Calcium 8.8 Corrected Calcium 9.4 Phosphorus 3.5 Magnesium 2.1 Total Bilirubin 0.3 AST 20 ALT 9 L Alkaline Phosphatase 86 Total Protein 5.7 Albumin 3.2 L Globulin 2.5 Albumin/Globulin Ratio 1.3 Vancomycin Trough 7.1 ABG Interpretation ABG results: 01/07/25 18:28 ABG pH 7.17 L* ABG pCO2 14 L* ABG pO2 122 H ABG HCO3 5 L* ABG O2 Saturation 97 ABG Base Excess -21 L Quality Measures Quality Measures none Assessment & Plan Assessment Current Active Medications: Generic Name Dose Route Start Last Admin Trade Name Freq PRN Reason Stop Dose Admin Acetaminophen 650 mg 01/09/25 11:48 01/12/25 11:45 Acetaminophen 325 Mg Tablet PO 02/08/25 07:43 650 mg Q6HR PRN Administration Pain 1-3 or Temp >99.9 Dextrose 50 ml 01/08/25 15:27 Dextrose 50%-Water Inj 50 Ml Syringe IV 02/07/25 15:26 Q15MIN PRN BG <50 OR BG <70 & pt unresponsive Glucagon 1 mg 01/08/25 15:27 Glucagon Inj 1 Mg Vial IM Q15MIN PRN BG <70, and no IV access Hydromorphone HCl 0.5 mg 01/08/25 14:21 01/13/25 07:54 Hydromorphone Inj 2 Mg/Ml Vial IVP 01/13/25 14:20 0.5 mg Q4HR PRN Administration PAIN SCALE 7-10 (Severe Ceftriaxone Sodium/Dextrose 1 gm in 50 mls @ 100 mls/hr 01/10/25 19:16 01/13/25 09:48 Rocephin/D5w 1gm Iv Premix IV 01/17/25 19:15 100 mls/hr QDAY TATIANA Administration Metronidazole 500 mg in 100 mls @ 200 mls/hr 01/10/25 19:16 01/13/25 05:10 Flagyl 500 Mg Iv IV 01/17/25 19:15 200 mls/hr Q8HR TATIANA Administration Vancomycin/Sodium Chloride 200 mls @ 120 mls/hr 01/13/25 10:45 01/13/25 10:40 Vancomycin/Ns 1 Gm Ivpb IV 01/20/25 10:44 120 mls/hr BID@1000,2200 TATIANA Administration Insulin Glargine 25 unit 01/09/25 21:00 01/12/25 20:34 Insulin Glargine (Lantus) 5 Unit/0.05 Ml (Per 5 Units) SC 02/08/25 20:59 25 unit HS TATIANA Administration Insulin Human Lispro 5 unit 01/08/25 17:30 01/13/25 07:54 Insulin Lispro (Admelog) 1 Unit/0.01 Ml Unit SC 02/07/25 17:29 Not Given TIDWM TATIANA Insulin Human Lispro 0 unit 01/11/25 21:00 01/13/25 07:53 Insulin Lispro (Admelog) 1 Unit/0.01 Ml Unit SC 02/10/25 20:59 Not Given ACHS TATIANA Protocol Magnesium Hydroxide 30 ml 01/07/25 20:06 Milk Of Magnesia Susp 30 Ml Udc PO 02/06/25 20:05 QDAY PRN CONSTIPATION Metoclopramide HCl 10 mg 01/09/25 09:15 01/13/25 05:06 Metoclopramide Inj 5 Mg/Ml Vial 2 Ml IVP 02/08/25 09:14 10 mg Q8HR TATIANA Administration Protocol Pantoprazole Sodium 40 mg 01/08/25 09:00 01/13/25 09:48 Pantoprazole 40 Mg Tablet PO 02/07/25 08:59 40 mg QDAY TATIANA Administration Pharmacy Consult 1 each 01/11/25 17:00 Vancomycin Pharmacy To Dose 1 Each Each IV 02/10/25 16:59 QDAY PRN CONSULT Plan Ms. Horne is a 49-year-old female with past medical history of insulin-dependent diabetes mellitus who presented to [facility] for intermittent nausea nonbloody emesis and abdominal pain. Patient was admitted to the intensive care unit due to underlying diabetic ketoacidosis. Patient downgraded to telemetry after anion gap closed x 2 and was transitioned to subcutaneous insulin. #Abdominal wall abscess s/p drainage CT abdomen/pelvis showed 9.7 x 4.5 x 8.3 cm. Differentials include abscess versus hematoma. 01/11/2025 Patient had the abdominal abscess drained and 50 cc of purulent material removed and an accordion drain was placed. Since then, there has been minimal output. 01/12/2025 Repeat soft tissue abdominal US showed abscess in the soft tissue at the area of concern 10.2 x 3.6 x 11.4 cm Zosyn 01/07?01/09 Blood culture negative Plan: -Continue Rocephin and Flagyl 01/10- -Vancomycin 01/09- -Acetaminophen as needed for pain -Abscess culture pending #Insulin-dependent diabetes mellitus type 2, uncontrolled #Diabetic ketoacidosis?resolved On admission: Patient likely noncompliant, on admission pH 7.17, pCO2 14, bicarb 13.3, beta hydroxybutyrate 5.6, glucose 350, hemoglobin A1c more than 14 - Insulin glargine 25 units at bedtime - Insulin lispro 5 units subcutaneous 3 times daily - Sliding scale insulin - Hypoglycemia protocol - Will need close outpatient follow-up for optimization - On scheduled Reglan due to suspicion of diabetic gastroparesis Health Maintenance DVT prophylaxis: SCDs GI prophylaxis: Not indicated Diet: Carb consistent low Lines: Peripheral IV Code status: Full code Patient plan of care was discussed with the attending physician, Dr. Awan. Joanna Chaney, PGY-2 Attending Provider Attestation/Addendum I have discussed and was present for the essential components of the history, physical examination, diagnosis, and treatment plan with the resident. I agree with the patient's care as documented by the resident and amended herein by me. Lee Awan, DO. Patient seen and evaluated this AM. No acute events overnight, vital signs stable, patient afebrile. Labs largely unremarkable. Ultrasound performed yesterday of the patient's abdominal mass demonstrated a 10.2 x 3.6 x 11.4 cm abscess, roughly the same size as when she presented. Will reach out to surgery today to see if an I&D can be performed, in the meantime we will continue on ceftriaxone, Flagyl and vancomycin. Cultures from IR drainage still pending, drain in place however minimal output. Continue to monitor closely while she is here. We did explain all this this morning with an regulatory compliance officer, the patient understood, all questions answered satisfactorily. Although this document has been carefully reviewed, there may still be some phonetic and other typographical errors. These errors are purely grammatical due to imperfections in the software program and should not be construed in any way to compromise the substance of the patient's medical care during this visit.
[2025-01-13] MEDS: INSULIN LISPRO (AdmeLOG) 1 UNIT/0.01 ML UNIT 5 UNIT SC ×2 (12:18→17:52)
[2025-01-13] MEDS: INSULIN LISPRO (AdmeLOG) 1 UNIT/0.01 ML UNIT SC ×2 (12:18→17:53)
[2025-01-13] MEDS: ACETAMINOPHEN 325 MG TABLET 650 MG PO (14:10)
[2025-01-14] VITALS (7 sets, daily range): BP systolic 95–107; BP diastolic 58–68; PULSE 67–83; RESP 18; TEMP 36.2–36.6; O2SAT 96; BMI 26.8
[2025-01-14] MEDS: HYDROmorphone INJ 2 MG/ML VIAL 0.5 MG IVP ×3 (03:11→17:42)
[2025-01-14] MEDS: METOCLOPRAMIDE INJ 5 MG/ML VIAL 2 ML 10 MG IVP ×2 (05:07→13:42)
[2025-01-14] MEDS: metroNIDAZOLE/NS 500 MG IVPB 500 MG/100 ML BAG 200 MG IV ×2 (05:10→13:42)
[2025-01-14 06:31] LABS: Alanine Aminotransferase 13 U/L (10-49); Albumin, Serum 3.1 gm/dL (3.5-5.0); Albumin/Globulin Ratio 1.2 (1.2-2.2); Alkaline Phosphatase 88 U/L (46-116); Anion Gap 6 (7-16); Aspartate Amino Transferase 27 U/L (0-34); BUN/Creatinine Ratio 14 Ratio (12-20); Bilirubin,Total 0.2 mg/dL (0.3-1.2); Blood Urea Nitrogen 7 mg/dL (9-23); Calcium 8.7 mg/dL (8.3-10.6); Calcium (Corrected) 9.4 mg/dL (8.5-10.1); Carbon Dioxide 27.8 mMol/L (20.0-31.0); Chloride 104 mMol/L (98-107); Creatinine (Component) 0.5 mg/dL (0.6-1.3); Estimated Creatinine Clearance 93.1 mL/min (>60); Globulin 2.5 gm/dL (2.3-3.5); Glucose 170 mg/dL (74-106); Magnesium 2.1 mg/dL (1.6-2.6); Osmolality,Calculated 277 (275-295); Phosphorous 3.4 mg/dL (2.4-5.1); Sodium 138 mMol/L (136-145); Total Protein 5.6 gm/dL (5.7-8.2); eGFR > 60 See Note
[2025-01-14 06:49] LABS: C-Peptide* 0.54 ng/mL (0.80-3.85)
[2025-01-14] MEDS: cefTRIAXone/D5w 1gm IV premix 1 GM/50 ML BAG IV (08:27)
[2025-01-14] MEDS: PANTOPRAZOLE 40 MG TABLET PO (08:27)
[2025-01-14] MEDS: INSULIN LISPRO (AdmeLOG) 1 UNIT/0.01 ML UNIT 5 UNIT SC ×3 (08:27→17:42)
[2025-01-14] MEDS: INSULIN LISPRO (AdmeLOG) 1 UNIT/0.01 ML UNIT SC ×2 (08:28→17:43)
--- NOTE | 2025-01-14 09:14 | PC.SS ---
Follow up note: Dr. Coyle will evaluate for abdominal wall abscess. Pt is on IV antibiotic. Pt will return home upon dc.
--- NOTE | 2025-01-14 09:15 | PC.NURSE ---
Dr Coyle in to assess pt, noted drainage with no output, removed drain and performed bedside I&D. Consent was obtained and pt received dilauded. Tolerated well. Large amount of fluid drained, small moistened gauze roll strip used for packing roughly 15cm long. covered with dry gauze abs and medipore tape
[2025-01-14 09:38] LABS: Basophils % (Auto) 0 % (0-2.5); Eosinophils # (Auto) 0.2 Thou/mm3 (0.0-0.5); Eosinophils % (Auto) 3 % (0-10); Hemoglobin 11.6 g/dL (12.0-16.0); Immature Granulocytes % (Auto) 0 % (0-0); Immature Granulocytes Auto 0.03 Thou/mm3 (0.00-0.00); Lymphocytes # (Auto) 1.3 Thou/mm3 (1.0-4.8); Lymphocytes % (Auto) 17 % (10-50); Mean Corpuscular HGB Conc 33.1 g/dl (31.0-37.0); Mean Corpuscular Hemoglobin 29.3 pg (25.0-35.0); Mean Corpuscular Volume 88 fL (80-100); Monocytes # (Auto) 0.9 Thou/mm3 (0.0-0.8); Monocytes % (Auto) 12 % (0-12); Neutrophils # (Auto) 5.4 Thou/mm3 (1.8-7.7); Neutrophils % (Auto) 68 % (37-80); Nucleated Red Blood Cell % 0 /100 WBC (0); Platelet Count 323 Thou/mm3 (140-440); RDW Standard Deviation 39.7 fL (36.4-46.3); Red Blood Count 3.96 Miln/mm3 (4.00-5.20); White Blood Count 7.9 Thou/mm3 (3.6-11.0)
--- NOTE | 2025-01-14 09:42 | ESPR_ITS ---
Documentation for date of: 01/14/25 Subjective Subjective Brief History: 49F with IDDM who was admitted 01/07 with nausea and abdominal swelling, to ICU with findings of DKA. Pt was noted to have a protrusion of the lower abdominal wall, imaging suggesting hematoma vs abscess for which general surgery is consulted. Pt states she hit the area while she was working a couple weeks ago and it has become increasingly swollen and tender. She denies any fever or mal aise Narrative: Spoke to pt with phone carbon paper coating supervisor Pt had been admitted last week to ICU with DKA and abdominal swelling concerning for abscess. On my initial exam I did not think the lesion was an abscess based on exam however pt continued to have pain to the area and on 01/11 underwent percutaneous drain placement with return of 50cc pus. Since then pt underwent repeat imaging showing the abscess increased in size and the drain has had little to no output. Pt reports continued pain to the area but has no other complaints Exam Vital Signs Temp Pulse Resp BP Pulse Ox O2 Del Method O2 Flow Rate 97.1 F 68 18 100/67 96 Room Air 3 01/14/25 08:00 01/14/25 08:00 01/14/25 08:00 01/14/25 08:00 01/14/25 08:00 01/14/25 08:00 01/11/25 15:30 Constitutional Constitutional: no acute distress Routine Respiratory Exam Respiratory: Present no resp distress Routine Abdominal Exam Abdominal: Present soft, tenderness (moderate tenderness at area of swelling inferior to umbilicus) and distended; Absent rebound or guarding Results Results: Laboratory Laboratory results: results reviewed Results: Imaging US - abdomen: report reviewed Assessment & Plan Plan 49M with IDDM admitted with DKA and an abdominal wall abscess s/p percutaneous drain placement 01/11, with signs of an ongoing abscess. I explained with a phone carbon paper coating supervisor that incision and drainage is necessary to address the abscess and that the wound will need daily packing changes for a matter of days to weeks. Pt expressed understanding and prefers not to have anesthesia, is agreeable to bedside drainage
--- NOTE | 2025-01-14 09:45 | PD.SURPROC ---
PROCEDURES: Procedure Comment Procedure Comment: Informed consent obtained with phone full time staff interpreter Pt premedicated with 0.5mg IV dilaudid Timeout performed Previously placed percutaneous drain removed Area of most fluctuance incised with a #11 blade Copious pus returned with some blood clots Wound irrigated with saline and packed with moistened kerlix, covered with gauze and abdominal pad Pt tolerated procedure well Abscess I/D Site: abdomen Sedation/analgesia: other (Dilaudid 0.5mg IV) Technique: incised with #11 blade Amount of fluid (mL): 50 Irrigation: Yes Packing used?: plain
[2025-01-14] MEDS: VANCOMYCIN/NS 1 GM IVPB 200 ML IV (10:47)
--- NOTE | 2025-01-14 11:40 | PC.NURSE ---
Hospitalist team in to round, informed them of wound packing
--- NOTE | 2025-01-14 12:06 | PC.NURSE ---
Discharge orders in, Per Dr. Coyle, dressing to be changed daily so home health orders also received
--- NOTE | 2025-01-14 14:30 | PC.NURSE ---
spoke with transfer nurse regarding home health, she was planning to get to her home health orders at this time. expecting call back. left extension
--- NOTE | 2025-01-14 14:46 | PC.NURSE ---
Received call from transfer nurse, pt will need signed discharge summary for HH and someone to provide wound care at home until HH can follow up. Dr Monte made aware
--- NOTE | 2025-01-14 14:46 | PD.RESDS ---
Planned Discharge Date 01/14/25 DS: Providers Provider Date of admission: 01/07/25 20:34 Primary care physician: Physician No Primary/Family Admitting Provider: Valerio Monte MD Attending Provider on Admission: Jaylan Awan DO Consults: 01/07/25 18:12 Consult to General Surgery Stat Comment: Abdominal abscess Consulting Provider: Argelia Coyle 01/07/25 21:47 Referral Registered Dietitian Routine Comment: 01/07/25 22:53 Health [facility] Referral - Knowledge Deficit Routine Comment: Positive screening for knowledge deficit needs. 01/09/25 11:47 Referral Physical Therapy Routine Comment: Physician Instructions: Attending Provider on DC: Felecia Monte MD Discharging Provider: Felecia Monte MD DS: Diagnosis Problem List Completed Was Problem List Reviewed/Reconciled?: Yes Hospital Course Hospital Course Hospital course: Ms. Horne is a 49-year-old female with past medical history of insulin-dependent diabetes mellitus who presented to [facility] on 01/07[facility]25 complaining of intermittent nausea nonbloody emesis and abdominal pain. Patient was admitted to the ICU for management of diabetic ketoacidosis. After insulin drip, pt anion gap closed x2 and transitioned to subcutaneous insulin. Patient was downgraded to telemetry on 01/09/25. During hospitalization patient was also noted to have lower abdominal pain with a fluctuant mass which patient noticed after work-related injury. The mass has become very tender to touch and erythematous. Imaging revealed abdominal wall abscess for which patient underwent IR drainage and an accordion drain was placed however patient continued to have fluctuant mass and tenderness with no output from the drain. Patient then underwent incision and drainage with general surgery and copious amount of pus was removed and the wound was packed with moist did not Kerlix and covered with gauze and abdominal pad. Patient is hemodynamically stable blood sugars are under control to be safely discharged home with home health. Patient is advised to finish her antibiotics for additional 5 days and daily wound dressing change and to follow-up with general surgery in 1 week after discharge. Patient is started on a diabetes regimen that has worked well for her during hospitalization. Patient is advised to continue current diabetes regimen and follow-up with primary care physician within 1 week after discharge. For diabetes patient is to continue Lantus 25 units daily, lispro 5 units 3 times a day and monitor daily glucose with freestyle herminia. Patient is also advised to follow-up with public affairs manager and blind cleaner once a year for which patient will need referral from primary care physician. Discharge Recommendations -Follow up with PCP within 1 week of discharge, if you do not have a primary care physician you can come see us at the [facility] by calling [phone] -You have been prescribed antibiotics for 5 additional days. Please complete the course -It is very important you stay compliant with your Diabetes medications and adhere to healthy diet. Please take your Diabetes medications as prescribed. -You will need to follow up with surgeon Dr. Coyle outpatient -Return to the ED or call EMS if symptoms return and/or worsen Hospitalization Diagnosis #Abdominal wall abscess s/p drainage #Insulin-dependent diabetes mellitus type 2, uncontrolled #Diabetic ketoacidosis?resolved Assessment and plan discussed with my attending physician Dr. Emperatriz Monte (PGY-1)- Internal medicine resident Time Spent with Patient Time attestation: Total time spent providing and/or coordinating discharge services: Time spent: Greater than 30 minutes Home Health Home Health Referral Orders: 01/14/25 12:01 Home Health Referral Routine Reason For Exam: debility Home-Bound The patient must either because of illness or injury, need the aid of supportive devices such as crutches, canes, wheelchairs, and walkers; the use of special transportation; or the assistance of another person in order to leave their place of residence; OR have a condition such that leaving his or her home is medically contraindicated. In addition, the patient also meets the following criteria: patient is normally unable to leave the home and leaving home requires considerable taxing effort. Addendum to Home Health Certification Practitioner's Certification: I certify that the patient has been under my care in the hospital and the care of attending physician (see below). We had a [id number] encounter on (see date below). My clinical findings indicate that the patient is home bound per the above criteria and the Home Health Services noted in these orders are medically necessary. The primary reason for the lqcu-zv-[id number] encounter is related to the fact that the patient requires home health services. Date Certifying [id number] Physician Encounter: 01/07/25 Physician's Name who will Assume Oversight for HH Services: Physician No Primary/Family OCCUPATIONAL THERAPY INSTRUCTOR - Community Resources: No PT to Evaluate: No PT to evaluate and provide a treatmnet plan to increase patient's mobility and strength. Wound Care: Yes Home Health RN - Wound Care Order: Abdominal wound packing IV Therapy: No RN Safety Evaluation: Yes RN to evaluate and create a plan of care that will produce positive outcomes. Palliative Treatment: No Palliative treatment and evaluate the need for hospice. Home Health Aide - Personal Care: No Home Health Aide to assist with any ADL's. Exam Vital Signs Temp Pulse Resp BP Pulse Ox O2 Del Method O2 Flow Rate 97.5 F 71 18 102/64 96 Room Air 3 01/14/25 12:01/14/25 12:01/14/25 12:01/14/25 12:01/14/25 12:01/14/25 12:01/11/25 15:30 Narrative Exam Physical Exam General: Awake and in no acute distress. Conversational and non-toxic appearing. HEENT: Normocephalic, atraumatic, mucous membranes moist. Heart: Regular rate and rhythm, normal S1 and S2, no murmurs. Lungs: Clear to auscultation with no wheezing or crackles. Abdomen: Soft, nondistended, nontender, positive bowel sounds. ?No guarding or rebound tenderness. Neurologic: Alert and oriented x3, no gross neurological deficit, and patient able to move all 4 extremities. Extremities: No edema. Skin: No rash or ecchymoses. Discharge Plan Plan Patient Disposition: Home w/HOME HEALTH Patient condition on transfer: Stable Care Plan Goals: -Follow up with PCP within 1 week of discharge, if you do not have a primary care physician you can come see us at the [facility] by calling [phone] -You have been prescribed antibiotics for 5 additional days. Please complete the course -It is very important you stay compliant with your Diabetes medications and adhere to healthy diet. Please take your Diabetes medications as prescribed. -You will need to follow up with surgeon Dr. Coyle outpatient in 1 week -Return to the ED or call EMS if symptoms return and/or worsen Prescriptions/Referrals Prescriptions/Med Rec: New amoxicillin-pot clavulanate 875-125 mg tablet 1 tab PO BID 5 Days Qty: 10 0RF insulin glargine 100 unit/mL (3 mL) insulin pen 25 unit subcut QDAY Qty: 15 3RF (DME) FreeStyle Herminia 3 Plus Sensor Device See Rx Instructions .Route Qty: 2 3RF Rx Instructions: As directed (DME) pen needle, diabetic 29 gauge x 1/2 needle See Rx Instructions .Route Qty: 100 3RF Rx Instructions: As directed insulin lispro 100 unit/mL insulin pen 5 unit subcut TID Qty: 15 3RF (DME) FreeStyle Herminia 3 [place] Misc See Rx Instructions .Route Qty: 1 0RF Rx Instructions: As directed Discontinued insulin aspart U-100 [Novolog FlexPen U-100 Insulin] 100 unit/mL (3 mL) insulin pen 1 sliding scale dose subcut USEASDIRECTD Referrals: Argelia Coyle MD [Physician] - (You will receive a phone call to confirm a follow-up appt with me next week) No Primary/Family,Physician [Primary Care Provider] - Patient/Caregiver Discharge Instructions Other Discharge Activity Instructions:: -Follow up with PCP within 1 week of discharge, if you do not have a primary care physician you can come see us at the [facility] by calling [phone] -You have been prescribed antibiotics for 5 additional days. Please complete the course -It is very important you stay compliant with your Diabetes medications and adhere to healthy diet. Please take your Diabetes medications as prescribed. -You will need to follow up with surgeon Dr. Coyle outpatient -Return to the ED or call EMS if symptoms return and/or worsen Education Materials: Diabetic Ketoacidosis Print Language: Yoruba Stand Alone Forms: Kady Award Info., Patient Portal Info Letter Discharge Order Discharge Orders: Discharge (Routine); Ordered 01/14/25 Ordered By: Felecia Monte Quality Discharge Quality Measures VTE prophylaxis Attestestation MD Attestation I have discussed and was present for the essential components of the discharge history, physical examination, diagnosis, and discharge treatment plan with the resident. I agree with the patient's discharge care as documented by the resident and amended herein by me. Lee Awan, DO. Patient had I&D on day of discharge with Dr. Coyle, the wound is packed and drain removed., home health for wound care has been ordered, the patient will follow-up with Dr. Tavera in about a week for further evaluation. Patient will also be discharged with a few extra days of Augmentin 875 mg twice daily, see resident note above for additional details. The patient was stable, afebrile, tolerating p.o. intake and ambulatory at time of discharge home. The patient understood all discharge instructions, all questions were answered satisfactorily. The patient was instructed to return to the Emergency Department is symptoms worsened or persisted. Although this document has been carefully reviewed, there may still be some phonetic and other typographical errors. These errors are purely grammatical due to imperfections in the software program and should not be construed in any way to compromise the substance of the patient's medical care during this visit.
--- NOTE | 2025-01-14 14:56 | PC.CC ---
Infusion ref sent, [facility] accepted and booked pending HH SOC. HH ref sent, waiting for responses.
--- NOTE | 2025-01-14 15:05 | PC.CC ---
Addendum entered by Staci Casper RN 01/14/25 18:41: 1841: dc summary and updated dc instructions sent to [facility]. Original Note: HH ref sent, [facility] accepted and booked. SOC 01/16/2025. Will need to send DC summary when finalized.
--- NOTE | 2025-01-14 17:30 | PC.NURSE ---
Noted pain medication were not on board for discharge, made Dr Monte aware. [place] was added to the dc plan
--- NOTE | 2025-01-14 17:45 | PC.NURSE ---
at bedside assisted and learned how to change the dressing daily with packing. She is confident she can provide this care daily and PRN for soiling until isaias can follow up. All supplies provided
== END 2025-01-14 18:54 | disposition home health service (06) | DRG 420 ==
LOC: SERX 19:31 → SERHOLD 20:50 → S2SX 22:13 → S3NX 01-09 16:13
PROVIDERS: Nurse Practitioner Primary Care; Radiology Diagnostic Radiology; Student in an Organized Health Care Education/Training Program; Admitting Provider Student in an Organized Health Care Education/Training Program; Emergency Provider Emergency Medicine; Visit Provider Student in an Organized Health Care Education/Training Program
DX: E11.10 Type 2 diabetes mellitus with ketoacidosis without coma (principal); L02.211 Cutaneous abscess of abdominal wall; E83.39 Other disorders of phosphorus metabolism; E87.6 Hypokalemia; S30.1XXA Contusion of abdominal wall, initial encounter; X58.XXXA Exposure to other specified factors, initial encounter; Z79.4 Long term (current) use of insulin; Z91.199 Patient's noncompliance with other medical treatment and regimen due to unspecified reason; Y99.0 Civilian activity done for income or pay
CPT/HCPCS: 36415; 36600; 74177; 75989; 76705; 80053; 80061; 80069; 80202; 81001; 81025; 82010; 82150; 82248; 82803; 83036; 83605; 83690; 83735; 84100; 84132; 84145; 84439; 84443; 84484; 84681; 84703; 85025; 85610; 85652; 85730; 86140; 87040; 87070; 87075; 87077; 87081; 87086; 87186; 87205; 93005; 93225; 96361; 96365; 96372; 96374; 96375; 97162; 99291; A4649; C1729; J0696; J1171; J1650; J1815; J1885; J2405; J2543; J2765; J3010; J3370; J3475; J3480; J3490; J7030; J7120; J7121; J7999; Q9967; A9270; C1725; J1836

== ENCOUNTER 2025-01-21 13:58 | Outpatient (AMB) | payer MEDICAID, SELFPAY ==
--- NOTE | 2025-01-21 14:12 | PD.GSCLVISIT ---
[facility]ital Signs - [facility] 01/21/25 14:13 Height 1.37 m Height Method Stated Weight 49.442 kg Weight Measurement Method Standing Scale BMI 26.3 BP 120/79 Blood Pressure Source Automatic Cuff Blood Pressure Location Left Upper Arm Position Sitting Respiration 19 Pulse 63 Pulse Source Monitor Temp 98.0 F Temp Source Temporal Artery Scan Pulse Oximetry (%) 98 Oxygen Delivery Method Room Air Med/Allergies Allergies & Medications Allergies No Known Allergies Allergy (Verified 01/21/25 14:21) Medication Reconciliation blood-glucose sensor (FreeStyle Herminia 3 Plus Sensor device) #2 ea 01/14/25 [Rx Confirmed 01/21/25] blood-glucose,svp operations,cont (FreeStyle Herminia 3 [place]) #1 ea 01/14/25 [Rx Confirmed 01/21/25] insulin glargine 100 unit/mL (3 mL) subcutaneous pen 25 unit (0.25 mL) subcut QDAY #15 mL 01/14/25 [Rx Confirmed 01/21/25] insulin lispro 100 unit/mL subcutaneous pen 5 unit (0.05 mL) subcut TID #15 mL 01/14/25 [Rx Confirmed 01/21/25] pen needle, diabetic 29 gauge x 1/2 #100 ea 01/14/25 [Rx Confirmed 01/21/25] MA Intake Visit Data Collection New Patient or Established: Established Patient (seen at [facility] within 3 years) Seen by Clinical Staff ONLY (RN/MA): No Reason for Visit:: ABDOMINAL ACCESS Pain Present Currently: Yes (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 PCP or OBGYN visit in last 3 months: Yes Smoking Status Smoking Status: Never smoker Immunization / Flu Flu Vaccine in the Last 12 Months: No Flu Vaccine Exclusion Criteria: No Exclusion Criteria Past Medical History Past Medical History CARDIAC: Negative Cardiac Disorders or Congestive Heart Failure RESPIRATORY: Negative Chronic Obstructive Pulmonary Disease (COPD) or Asthma GENITOURINARY: Negative Renal Disease ENDOCRINE: Positive Diabetes Mellitus Type 2; Negative Diabetes Mellitus Type 1 HEMATOLOGIC: Positive Anemia; Negative Sickle Cell Disease OTHER HISTORY: Positive Blood Transfusions; Negative Organ Transplant Surgical History SURGICAL: Negative Organ Transplant Social History SMOKING STATUS: Smoking status: Never smoker ALCOHOL: Alcohol Intake: Never HOUSING: Housing: House LIVES WITH: Lives With: Spouse HPI HPI Narrative 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 Pt reports feeling well with minimal pain and no drainage, and her daughter has been changing packing daily. At first her blood sugar at home was >300 but lately has been in the 100s. Pt has not yet followed up with her PCP since discharge Objective/Exam General General Appearance: alert, cooperative and well groomed Resp Respiratory exam: Absent respiratory distress Abdominal Abdominal exam: Present soft and incision (lower abdominal incision with surrounding induration but no fluctuance, no erythema, packing replaced and beefy red granulation tissue noted at base); Absent distention or tenderness Assessment & Plan Diagnosis / Problem List (1) Abdominal abscess: Status: Acute Assessment & Plan: 49F who was admitted with DKA and an abdominal wall abscess s/p I&D 01/14 here for planned follow up, recovering well overall Plan: Continue daily packing changes F/u in 2 weeks Office Procedures GNS Level of Care Nursing/Assessment Patient Status: Established Patient Nursing Assessment/Reassesment: Medication Reconciliation, Update PMH in EMR and Vital Signs Coordination of Care: Complex Care and Chronic Disease 1-5, Consent,records obtained, informed consent, Education Simp Pt/Fam, Results/Orders obtained and Staff clarify orders Established Patient Charge Established Patient Point Assignment: 90 Established Patient Point Charge: EP Level 3 (80-115) Patient Portal Questionaires Social History Living Situation History Housing: House Tobacco History Smoking Status: Never smoker Alcohol History Alcohol Intake: Never Review of Systems Report any current symptoms Only answer those that you have currently: Past Medical History Past Medical History Have you ever been diagnosed with any of the following: Cardiology Problems Congestive Heart Failure: No Respiratory Problems Chronic Obstructive Pulmonary Disease (COPD): No Asthma: No Genital/Urinary Problems Renal Disease: No Endocrine Problems Diabetes Mellitus Type 1: No Diabetes Mellitus Type 2: Yes Blood Problems Anemia: Yes Sickle Cell Disease: No Other Problems Blood Transfusions: Yes Organ Transplant: No
[2025-01-21 14:13] VITALS: BP 120/79; PULSE 63; RESP 19; TEMP 36.7; O2SAT 98; BMI 26.3
== END 2025-01-21 14:42 | disposition home or self-care (01) ==
LOC: HODSRG 13:58
PROVIDERS: Supervising Provider Surgery; Visit Provider Surgery
DX: Z48.817 Encounter for surgical aftercare following surgery on the skin and subcutaneous tissue (principal)
CPT/HCPCS: 99213; G0463

== ENCOUNTER 2025-02-04 14:58 | Outpatient (AMB) | payer MEDICAID, SELFPAY ==
--- NOTE | 2025-02-04 15:02 | PD.GSCLVISIT ---
Vital Signs - [facility] 02/04/25 15:05 Height 1.37 m Height Method Measured Weight 49.98 kg Weight Measurement Method Standing Scale BMI 26.6 BP 136/83 H Blood Pressure Source Automatic Cuff Blood Pressure Location Left Upper Arm Position Sitting Respiration 18 Pulse 59 L Pulse Source Monitor Temp 97.9 F Temp Source Temporal Artery Scan Pulse Oximetry (%) 98 Oxygen Delivery Method Room Air Med/Allergies Allergies & Medications Allergies No Known Allergies Allergy (Verified 02/04/25 15:06) Medication Reconciliation blood-glucose sensor (FreeStyle Herminia 3 Plus Sensor device) #2 ea 01/14/25 [Rx Confirmed 02/04/25] blood-glucose,data collection specialist,cont (FreeStyle Herminia 3 [place]) #1 ea 01/14/25 [Rx Confirmed 02/04/25] insulin glargine 100 unit/mL (3 mL) subcutaneous pen 25 unit (0.25 mL) subcut QDAY #15 mL 01/14/25 [Rx Confirmed 02/04/25] insulin lispro 100 unit/mL subcutaneous pen 5 unit (0.05 mL) subcut TID #15 mL 01/14/25 [Rx Confirmed 02/04/25] pen needle, diabetic 29 gauge x 1/2 #100 ea 01/14/25 [Rx Confirmed 02/04/25] MA Intake Visit Data Collection New Patient or Established: Established Patient (seen at [facility] within 3 years) Seen by Clinical Staff ONLY (RN/MA): No Reason for Visit:: F/U I&D Pain Present Currently: No Pain scale:: 0 Pain Scale Used: [place]/Numerical Freight Traffic Consultant Required: Yes PCP or OBGYN visit in last 3 months: Yes Hx Now: No Do You Feel Safe at Home: Yes Authorities Contacted: N/A Smoking Status Smoking Status: Never smoker Immunization / Flu Flu Vaccine in the Last 12 Months: No Flu Vaccine Exclusion Criteria: No Exclusion Criteria Past Medical History Past Medical History CARDIAC: Negative Cardiac Disorders or Congestive Heart Failure RESPIRATORY: Negative Chronic Obstructive Pulmonary Disease (COPD) or Asthma GENITOURINARY: Negative Renal Disease ENDOCRINE: Positive Diabetes Mellitus Type 2; Negative Diabetes Mellitus Type 1 HEMATOLOGIC: Positive Anemia; Negative Sickle Cell Disease OTHER HISTORY: Positive Blood Transfusions; Negative Organ Transplant Surgical History SURGICAL: Negative Organ Transplant Social History SMOKING STATUS: Smoking status: Never smoker ALCOHOL: Alcohol Intake: Never HOUSING: Housing: House LIVES WITH: Lives With: Spouse HPI HPI Narrative 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 Pt reports feeling well with no pain or drainage, she is no longer packing the wound as it has fully healed up. Pt states her blood sugars are better controlled but she did make an appt with her PCP to discuss her insulin regimen ROS Review of Systems Systems Reviewed: All systems reviewed, normal except as documented Objective/Exam General General Appearance: alert, cooperative and well groomed Resp Respiratory exam: Absent respiratory distress Abdominal Abdominal exam: Present soft; Absent distention or tenderness Assessment & Plan Diagnosis / Problem List (1) Abdominal abscess: Status: Acute Assessment & Plan: 49F who was admitted with DKA and an abdominal wall abscess s/p I&D 01/14 here for planned follow up, recovering well from my standpoint. As she is seeing her PCP I did recommend she discuss colonoscopy as she has not had one yet and if she would like me to perform it I encouraged her to request another referral to me Office Procedures GNS Level of Care Nursing/Assessment Patient Status: Established Patient Nursing Assessment/Reassesment: Medication Reconciliation, Update PMH in EMR and Vital Signs Coordination of Care: Complex Care and Chronic Disease 1-5, Consent,records obtained, informed consent, Education Simp Pt/Fam, Results/Orders obtained and Staff clarify orders Special Needs: Language special needs Established Patient Charge Established Patient Point Assignment: 90 Established Patient Point Charge: EP Level 3 (80-115) Patient Portal Questionaires Social History Living Situation History Housing: House Tobacco History Smoking Status: Never smoker Alcohol History Alcohol Intake: Never Domestic Abuse History Do You Feel Safe at Home: Yes Review of Systems Report any current symptoms Only answer those that you have currently: Past Medical History Past Medical History Have you ever been diagnosed with any of the following: Cardiology Problems Congestive Heart Failure: No Respiratory Problems Chronic Obstructive Pulmonary Disease (COPD): No Asthma: No Genital/Urinary Problems Renal Disease: No Endocrine Problems Diabetes Mellitus Type 1: No Diabetes Mellitus Type 2: Yes Blood Problems Anemia: Yes Sickle Cell Disease: No Other Problems Blood Transfusions: Yes Organ Transplant: No
[2025-02-04 15:05] VITALS: BP 136/83; PULSE 59; RESP 18; TEMP 36.6; O2SAT 98; BMI 26.6
== END 2025-02-04 15:44 | disposition home or self-care (01) ==
PROVIDERS: Supervising Provider Surgery; Visit Provider Surgery
DX: Z48.817 Encounter for surgical aftercare following surgery on the skin and subcutaneous tissue (principal); E11.9 Type 2 diabetes mellitus without complications
CPT/HCPCS: 99213; G0463